=== PATIENT | female | born 1945 | race Caucasian/White ===

== ENCOUNTER 2018-06-11 12:30 | Inpatient (IN) ==
[2018-06-11] MEDS ORDERED: HYDROmorphone PF Inj 2 MG/ML Vial IV.PUSH ONE (12:52)
--- NOTE | 2018-06-11 13:54 | XR ---
EXAM DATE: 06/11/2018 1:42 PM EDT AGE/SEX: 73 years / Female INDICATIONS: Fell at home today. CLINICAL DATA: This is the patient's initial encounter. Patient reports that signs and symptoms have been present for 1 day and indicates a pain score of 0/10. MEDICAL/SURGICAL HISTORY: Cardiovascular disease. Hypertension. COPD,diabetes Hysterectomy. Appendectomy. total knee surgery. COMPARISON: No prior exams available for comparison. FINDINGS: A single AP view of the chest demonstrates the lungs to be symmetrically aerated without evidence of mass, infiltrate or effusion. The cardiomediastinal contours are unremarkable. Osseous structures a re intact. CONCLUSION: Negative examination. Electronically signed by: Lizandro Cavanaugh MD 06/11/2018 1:53 PM EDT
--- NOTE | 2018-06-11 13:55 | CT ---
EXAM DATE: 06/11/2018 1:49 PM EDT AGE/SEX: 73 years / Female INDICATIONS: Fall. Head and neck pain. CLINICAL DATA: This is the patient's initial encounter. Patient reports that signs and symptoms have been present for 1 day and indicates a pain score of 4/10. MEDICAL/SURGICAL HISTORY: Hypertension. Diabetes. Hysterectomy. RADIATION DOSE: 36.39 CTDI (mGy) COMPARISON: [facility] [place], CT BRAIN W/O CONTRAST, 10/06/2015. . TECHNIQUE: CT of the head without contrast. Using automated exposure control and adjustment of the mA and/or kV according to patient size, radiation dose was kept as low as reasonably achievable to ob tain optimal diagnostic quality images. DICOM format image data is available electronically for revi ew and comparison. FINDINGS: Cerebrum: The ventricles are normal for age. No evidence of midline shift, mass lesion, hemorrhage or acute infarction. No extraaxial fluid collections are seen. Posterior Fossa: The cerebellum and brainstem are intact. The 4th ventricle is midline. The cerebe llopontine angle is unremarkable. Extracranial: The visualized portion of the orbits is intact. Skull: The calvaria is intact. No evidence of skull fracture. CONCLUSION: 1. Negative CT Head non contrast. Mild atrophy . Electronically signed by: Lizandro Cavanaugh MD 06/11/2018 1:54 PM EDT
--- NOTE | 2018-06-11 13:57 | XR ---
EXAM DATE: 06/11/2018 1:45 PM EDT AGE/SEX: 73 years / Female INDICATIONS: Fell today. CLINICAL DATA: This is the patient's initial encounter. Patient reports that signs and symptoms have been present for 1 day and indicates a pain score of 10/10. MEDICAL/SURGICAL HISTORY: Cardiovascular disease. Hypertension. COPD,DIABETES Hysterectomy. Appendectomy. total knee surgery COMPARISON: No prior exams available for comparison. FINDINGS: Examination of the pelvis demonstrates no evidence of fracture or dislocation. Bony mineralization i s normal. There is no widening of the sacroiliac joints. No foreign body is identified. Previous bl adder suspension surgery CONCLUSION: Negative examination. Electronically signed by: Lizandro Cavanaugh MD 06/11/2018 1:56 PM EDT
--- NOTE | 2018-06-11 13:57 | XR ---
EXAM DATE: 06/11/2018 1:49 PM EDT AGE/SEX: 73 years / Female INDICATIONS: Fell today. CLINICAL DATA: This is the patient's initial encounter. Patient reports that signs and symptoms have been present for 1 day and indicates a pain score of 10/10. MEDICAL/SURGICAL HISTORY: Cardiovascular disease. Hypertension. diabetes, copd Appendectomy. Hysterectomy. total knee COMPARISON: No prior exams available for comparison. FINDINGS: There is a displaced oblique fracture involving the right humeral shaft. The shaft is partially displ aced by 150% of its original shaft width. The humeral head is normal in position. CONCLUSION: Oblique displaced humeral shaft fracture as described above. Electronically signed by: Lizandro Cavanaugh MD 06/11/2018 1:55 PM EDT
--- NOTE | 2018-06-11 13:58 | XR ---
EXAM DATE: 06/11/2018 1:53 PM EDT AGE/SEX: 73 years / Female INDICATIONS: Fell today. CLINICAL DATA: This is the patient's initial encounter. Patient reports that signs and symptoms have been present for 1 day and indicates a pain score of 10/10. MEDICAL/SURGICAL HISTORY: Cardiovascular disease. Hypertension. Chronic obstructive pulmonary disease. diabetes Hysterectomy. Appendectomy. total knee COMPARISON: [facility] [place], SHOULDER LIMITED RIGHT 2V, 06/11/2018. . FINDINGS: There is an oblique spiral fracture of the midshaft of the right humerus with rotation and lateral di splacement of the distal fragment. CONCLUSION: Significantly displaced humeral fracture as above Electronically signed by: Lizandro Cavanaugh MD 06/11/2018 1:56 PM EDT
--- NOTE | 2018-06-11 14:05 | CT ---
EXAM DATE: 06/11/2018 1:59 PM EDT AGE/SEX: 73 years / Female INDICATIONS: Fall. Head, neck, and face pain. CLINICAL DATA: This is the patient's initial encounter. Patient reports that signs and symptoms have been present for 1 day and indicates a pain score of 4/10. MEDICAL/SURGICAL HISTORY: Hypertension. Diabetes. Hysterectomy. RADIATION DOSE: 28.39 CTDI (mGy) COMPARISON: No prior exams available for comparison. TECHNIQUE: Contiguous images in the axial and coronal planes were obtained using helical multirow de tector technique. Using automated exposure control and adjustment of the mA and/or kV according to p atient size, radiation dose was kept as low as reasonably achievable to obtain optimal diagnostic felipe lity images. DICOM format image data is available electronically for review and comparison. FINDINGS: Orbits: The orbital and infraorbital osseous structures are intact. The retroconal structures have a normal configuration. No radiopaque foreign bodies are seen. Nasal Bone: The nasal bone and maxillary spine are intact. Zygomatic Arches: Symmetric without evidence of fracture. Sinuses: The maxillary, ethmoid, and frontal sinuses are intact. No air-fluid levels seen. Nasal Cavity: The nasal septum is intact and midline. The lacrimal ducts are intact. Soft Tissues: Subcutaneous hematoma in the left frontal region anteriorly without underlying bony in jury or intracranial hemorrhage. Intracranial: No intracranial air seen. Cribriform Plate: Grossly intact. CONCLUSION: 1. Left frontal subcutaneous hematoma. No evidence of underlying facial fracture or significant sinu s disease Electronically signed by: Lizandro Cavanaugh MD 06/11/2018 2:03 PM EDT
--- NOTE | 2018-06-11 14:09 | CT ---
EXAM DATE: 06/11/2018 2:02 PM EDT AGE/SEX: 73 years / Female INDICATIONS: Trauma, fall. CLINICAL DATA: This is the patient's initial encounter. Patient reports that signs and symptoms have been present for 1 day and indicates a pain score of 6/10. MEDICAL/SURGICAL HISTORY: Hypertension. Diabetes. Hysterectomy. RADIATION DOSE: 18.26 CTDI (mGy) COMPARISON: [facility], CT CHEST W/O CONTRAST, 10/03/2014. . TECHNIQUE: Multiple contiguous axial images were obtained through the chest without contrast. Image s were obtained in suspended respiration using multiple row detector helical technique. Using automa demetris exposure control and adjustment of the mA and/or kV according to patient size, radiation dose was kept as low as reasonably achievable to obtain optimal diagnostic quality images. DICOM format imag e data is available electronically for review and comparison. FINDINGS: Lungs: The lungs are symmetrically aerated. No infiltrates or nodular densities are seen. Mediastinum: There is good visualization of the great vessels of the middle mediastinum. No evidenc e of mediastinal or hilar adenopathy/mass. Pleurae: No evidence of focal thickening or pleural effusion. Axillae: Unremarkable. Bony Structures: Unremarkable. Miscellaneous: The examination was extended to include the upper abdomen, and both adrenal glands ar e normal in size and configuration. CONCLUSION: 1. Negative CT Chest non contrast. Electronically signed by: Lizandro Cavanaugh MD 06/11/2018 2:08 PM EDT
--- NOTE | 2018-06-11 14:15 | CT ---
EXAM DATE: 06/11/2018 2:01 PM EDT AGE/SEX: 73 years / Female INDICATIONS: Fall. Head and neck pain. CLINICAL DATA: This is the patient's initial encounter. Patient reports that signs and symptoms have been present for 1 day and indicates a pain score of 4/10. MEDICAL/SURGICAL HISTORY: Hypertension. Diabetes. Hysterectomy. RADIATION DOSE: 29.16 CTDI (mGy) COMPARISON: [facility], MR CERVICAL SPINE W/O CONTRAST, 04/10/2016. [facility], MR LUMBAR SPINE W/O CONTRAST, 01/25/2016. . TECHNIQUE: Contiguous axial images were obtained using helical multirow detector technique. The vol umetric data was post-processed with multiplanar reconstruction in oblique axial, sagittal, and coron al planes. Using automated exposure control and adjustment of the mA and/or kV according to patient s ize, radiation dose was kept as low as reasonably achievable to obtain optimal diagnostic quality francesco ges. DICOM format image data is available electronically for review and comparison. FINDINGS: There is no acute fracture or prevertebral soft tissue swelling. There is grade I anterolisthesis of C7 in relation to T1. Anterior cervical fusion hardware is noted at C4 and C5. There is straightening of the normal cervica l lordosis. Moderate spinal stenosis and bilateral foraminal narrowing is noted at C5-6. Mild spinal stenosis and moderate left neuroforaminal narrowing is noted at C4-5. Severe left neuroforaminal narr owing and moderate right neuroforaminal narrowing without spinal stenosis are noted at C3-4. Moderate left neuroforaminal narrowing is noted at C2-3 and C6-7. CONCLUSION: 1. No acute fracture or prevertebral soft tissue swelling. 2. Moderate spinal stenosis and bilateral foraminal narrowing at C5-6. 3. Mild spinal stenosis and moderate left neuroforaminal narrowing at C4-C5. 4. Severe left neuroforaminal narrowing and moderate right neuroforaminal narrowing without spinal s tenosis at C3-4. 5. Grade I anterolisthesis of C7 in relation to T1. 6. Moderate left neuroforaminal narrowing at C2-3 and C6-7. 7. Straightening of the normal cervical lordosis. Electronically signed by: Donal España MD 06/11/2018 2:13 PM EDT
[2018-06-11 14:33] LABS: Baso % (Auto) 0.2 % (0.0-2.0); Eos # (Auto) 0.1 th/mm3 (0.0-0.4); Eos % (Auto) 0.8 % (0.0-4.0); Hematocrit 40.4 % (35.0-46.0); Hemoglobin 13.8 gm/dL (11.6-15.3); Lymph # (Auto) 1.3 th/mm3 (1.0-4.8); Lymph % (Auto) 9.7 % (9.0-44.0); Mean Corpuscular HGB Conc 34.2 % (32.0-36.0); Mean Corpuscular Hemoglobin 31.2 pg (27.0-34.0); Mean Corpuscular Volume 91.3 fL (80.0-100.0); Mean Platelet Volume 9.8 fL (7.0-11.0); Mono # (Auto) 0.6 th/mm3 (0.0-0.9); Mono % (Auto) 4.2 % (0.0-8.0); Neut # (Auto) 11.7 th/mm3 (1.8-7.7); Neut % (Auto) 85.1 % (16.0-70.0); Platelet Count 160 th/mm3 (150-450); Red Blood Count 4.43 mil/mm3 (4.00-5.30); Red Cell Distribution Width 13.4 % (11.6-17.2); White Blood Count 13.8 th/mm3 (4.0-11.0)
[2018-06-11 14:46] LABS: Activated Partial Thrombo Time 22.8 sec (24.3-30.1); Prothrombin Time 10.2 sec (9.8-11.6)
[2018-06-11 14:50] LABS: Calcium 8.5 mg/dL (8.5-10.1); Carbon Dioxide 30.4 meq/L (21.0-32.0); Potassium 3.8 meq/L (3.5-5.1)
--- NOTE | 2018-06-11 15:23 | XR ---
EXAM DATE: 06/11/2018 3:18 PM EDT AGE/SEX: 73 years / Female INDICATIONS: Fell today at home CLINICAL DATA: This is the patient's initial encounter. Patient reports that signs and symptoms have been present for 1 day and indicates a pain score of 6/10. MEDICAL/SURGICAL HISTORY: Cardiovascular disease. Hypertension. COPD, Diabetes Appendectomy. Hysterectomy. COMPARISON: No prior exams available for comparison. FINDINGS: Moderate osteoarthritis is noted involving the interphalangeal joints of the right hand as well as th e first carpometacarpal joint. Bone mineralization is well maintained. There is no acute fracture or dislocation. No significant soft tissue swelling is noted. CONCLUSION: 1. Moderate osteoarthritis involving the interphalangeal joints of the right hand as well as the fir st carpometacarpal joint. 2. No acute fracture, dislocation or soft tissue swelling. Electronically signed by: Donal España MD 06/11/2018 3:21 PM EDT
[2018-06-11] MEDS ORDERED: Acetaminophen 325 MG Tablet PO PRN (15:40)
[2018-06-11] MEDS ORDERED: Bisacodyl 10 MG Supp RECTAL PRN (15:40)
[2018-06-11] MEDS ORDERED: Morphine Inj 4 MG/ML Vial IV.PUSH PRN (15:43)
[2018-06-11] MEDS ORDERED: Dextrose 50% in Water 50 ML Vial IV.PUSH PRN (15:46)
--- NOTE | 2018-06-11 15:58 | ED ---
HPI General Chief complaint: Fall Stated complaint: Fall Time Seen by Provider: 06/11/18 12:43 History of Present Illness HPI narrative: Patient is a 73-year-old female presents emergency department for evaluation of right arm pain and right upper back pain after a fall. Patient arrives by EMS states just prior to calling EMS this morning she had a trip and fall in her kitchen landing mostly on her face as well as her outstretched right hand. Denies any chest pain shortness of breath abdominal pain nausea vomiting diarrhea headache. Denies any history of blood thinner use. States the pain is severe, right arm, radiates to her fingertips, associated signs symptoms in context as above per Related Data Home Medications Medication Instructions Recorded Confirmed glimepiride 4 mg PO QAM 06/11/18 06/11/18 metoprolol tartrate 100 mg PO BID 06/11/18 06/11/18 Allergies Allergy/AdvReac Type Severity Reaction Status Date / Time vancomycin Allergy Severe Rash Verified 06/11/18 12:41 Review of Systems ROS: all other systems reviewed are negative [facility] Medical History Medical History Arthritis (Acute) Diabetes (Acute) HBP (high blood pressure) (Acute) Hx of hysterectomy (Acute) Surgical History Surgical History Hx of neck surgery (Acute) Social History Social History Substance History: No History of Abuse Second Hand Smoke Exposure: No Smoking Status: Never smoker How Often Do You Have a Drink Containing Alcohol: Never Recent Travel in [facility] within the Last 8 Weeks: No Recent Out of Country Travel within the Last 8 Weeks: No Immunization History Tetanus Immunization: >5 Years Hx Influenza Vaccine This Season: No Exam Narrative Exam Narrative: GENERAL: Well-developed well-nourished, overweight, exam somewhat limited by patient cooperation of the right upper extremity. SKIN: Focused skin assessment warm/dry. HEAD: No hanley signs, there is a frontal hematoma just left of midline, skin overlying is intact. There is some periorbital ecchymosis is normocephalic. EYES: Pupils equal and round. No scleral icterus. No injection or drainage. ENT: No nasal bleeding or discharge. Mucous membranes pink and moist. No septal hematoma NECK: Trachea midline. No JVD. CARDIOVASCULAR: Regular rate and rhythm. No murmur appreciated. RESPIRATORY: No accessory muscle use. Clear to auscultation. Breath sounds equal bilaterally. GASTROINTESTINAL: Abdomen soft, non-tender, nondistended. Hepatic and splenic margins not palpable. MUSCULOSKELETAL: No obvious deformities. No clubbing. No cyanosis. No edema. Pulses motor and sensory intact distally in all 4 extremities, compartments are soft, there is some tenderness about the middle of the humerus, exam otherwise limited by the patient's habitus, there is some minimal tenderness over the distal radius on the right side. No midline CT or L-spine tenderness. There is some tenderness over the right scapula. Pelvis is stable. NEUROLOGICAL: Awake and alert. No obvious cranial nerve deficits. Motor grossly within normal limits. Normal speech. PSYCHIATRIC: Appropriate mood and affect; insight and judgment normal. Course Initial Documented Vital Signs Temperature 98.1 F 06/11/18 12:35 Pulse Rate 52 L 06/11/18 12:35 Respiratory Rate 18 06/11/18 12:35 Blood Pressure 172/79 H 06/11/18 12:35 Pulse Oximetry 99 06/11/18 12:35 Last Documented Vital Signs Temperature 97.9 F 06/11/18 14:00 Pulse Rate 68 06/11/18 14:00 Respiratory Rate 18 06/11/18 14:20 Blood Pressure 152/83 H 06/11/18 14:00 Pulse Oximetry 97 06/11/18 14:00 Medical Decision Making MDM Narrative Medical decision making narrative: Patient room to the emergency department, x- rays obtained including a CT of her chest to assess the chest wall as well as the scapula, shows no acute fractures, distal radius negative, patient does have a midhumerus spiral/oblique fracture, she was placed in a coaptation splint , discussed with Dr. Cooper, n.p.o. after midnight for surgery in the morning. Patient does not appear to have any other injuries. Discussed with Dr. Matthews for admission to Medical Screen Exam Complete: Yes Emergency Medical Condition: Yes Differential Diagnosis Differential Diagnosis: Humerus fracture, neck fracture, head injury, scapular fracture, internal injury unlikely peer Lab Data Result diagrams: 06/11/18 13:00 06/11/18 13:00 Lab Results 06/11/18 06/11/18 06/11/18 Range/Units 13:00 13:00 13:00 WBC 13.8 H (4.0-11.0) th/mm3 RBC 4.43 (4.00-5.30) mil/mm3 Hgb 13.8 (11.6-15.3) gm/dL Hct 40.4 (35.0-46.0) % MCV 91.3 (80.0-100.0) fL MCH 31.2 (27.0-34.0) pg MCHC 34.2 (32.0-36.0) % RDW 13.4 (11.6-17.2) % Plt Count 160 (150-450) th/mm3 MPV 9.8 (7.0-11.0) fL Neut % (Auto) 85.1 H (16.0-70.0) % Lymph % (Auto) 9.7 (9.0-44.0) % [place] % (Auto) 4.2 (0.0-8.0) % Eos % (Auto) 0.8 (0.0-4.0) % Baso % (Auto) 0.2 (0.0-2.0) % Neut # (Auto) 11.7 H (1.8-7.7) th/mm3 Lymph # (Auto) 1.3 (1.0-4.8) th/mm3 [place] # (Auto) 0.6 (0.0-0.9) th/mm3 Eos # (Auto) 0.1 (0.0-0.4) th/mm3 Baso # (Auto) 0.0 (0.0-0.2) th/mm3 WBC Differential . Differential Comment Auto diff final PT 10.2 (9.8-11.6) sec INR 1.0 Ratio APTT 22.8 L (24.3-30.1) sec Sodium 141 (136-145) meq/L Potassium 3.8 (3.5-5.1) meq/L Chloride 103 (98-107) meq/L Carbon Dioxide 30.4 (21.0-32.0) meq/L Anion Gap 8 (5-15) meq/L BUN 18 (7-18) mg/dL Creatinine 0.84 (0.50-1.00) mg/dL Estimated GFR 67 L (>89) mL/min Random Glucose 273 H (74-106) mg/dL Calcium 8.5 (8.5-10.1) mg/dL Blood Type Blood Type Recheck Antibody Screen 06/11/18 Range/Units 13:00 WBC (4.0-11.0) th/mm3 RBC (4.00-5.30) mil/mm3 Hgb (11.6-15.3) gm/dL Hct (35.0-46.0) % MCV (80.0-100.0) fL MCH (27.0-34.0) pg MCHC (32.0-36.0) % RDW (11.6-17.2) % Plt Count (150-450) th/mm3 MPV (7.0-11.0) fL Neut % (Auto) (16.0-70.0) % Lymph % (Auto) (9.0-44.0) % [place] % (Auto) (0.0-8.0) % Eos % (Auto) (0.0-4.0) % Baso % (Auto) (0.0-2.0) % Neut # (Auto) (1.8-7.7) th/mm3 Lymph # (Auto) (1.0-4.8) th/mm3 [place] # (Auto) (0.0-0.9) th/mm3 Eos # (Auto) (0.0-0.4) th/mm3 Baso # (Auto) (0.0-0.2) th/mm3 WBC Differential Differential Comment PT (9.8-11.6) sec INR Ratio APTT (24.3-30.1) sec Sodium (136-145) meq/L Potassium (3.5-5.1) meq/L Chloride (98-107) meq/L Carbon Dioxide (21.0-32.0) meq/L Anion Gap (5-15) meq/L BUN (7-18) mg/dL Creatinine (0.50-1.00) mg/dL Estimated GFR (>89) mL/min Random Glucose (74-106) mg/dL Calcium (8.5-10.1) mg/dL Blood Type A Positive Blood Type Recheck Required Antibody Screen Negative Imaging Data Radiologist's impression: Cervical Spine CT 06/11/18 12:51 CONCLUSION: 1. No acute fracture or prevertebral soft tissue swelling. 2. Moderate spinal stenosis and bilateral foraminal narrowing at C5-6. 3. Mild spinal stenosis and moderate left neuroforaminal narrowing at C4-C5. 4. Severe left neuroforaminal narrowing and moderate right neuroforaminal narrowing without spinal stenosis at C3-4. 5. Grade I anterolisthesis of C7 in relation to T1. 6. Moderate left neuroforaminal narrowing at C2-3 and C6-7. 7. Straightening of the normal cervical lordosis. Chest X-Ray 06/11/18 12:51 CONCLUSION: Negative examination. Face CT 06/11/18 12:51 CONCLUSION: 1. Left frontal subcutaneous hematoma. No evidence of underlying facial fracture or significant sinus disease Head CT 06/11/18 12:51 CONCLUSION: 1. Negative CT Head non contrast. Mild atrophy . Pelvis X-Ray 06/11/18 12:51 CONCLUSION: Negative examination. Chest CT 06/11/18 12:53 CONCLUSION: 1. Negative CT Chest non contrast. Shoulder X-Ray 06/11/18 12:53 CONCLUSION: Oblique displaced humeral shaft fracture as described above. Humerus X-Ray 06/11/18 13:08 CONCLUSION: Significantly displaced humeral fracture as above Wrist X-Ray 06/11/18 14:47 CONCLUSION: 1. 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 2. No acute fracture, dislocation or soft tissue swelling. Discharge Plan Discharge Disposition Patient Disposition: 30 Still Patient Discharge Details Diagnosis: Fracture, humerus, Hematoma of frontal scalp Physicians Team ED Provider: Donal Licona Primary Care Provider: MARIA VICTORIA RAPHAEL Attending Provider: Gerardo Matthews Other Providers: Jesse Cooper Status ED Status: Admitted Patient
[2018-06-11] MEDS: HYDROmorphone PF Inj 2 MG/ML Vial IV.PUSH PRN ×2 (18:40→23:46)
--- NOTE | 2018-06-11 19:08 | P.HP ---
History of Present Illness Service: [facility] Primary Care Physician: [facility] Chief Complaint: fall and right arm pain History of Present Illness: This is a pleasant 73-year-old white female with significant past medical history of fibromyalgia, osteoarthritis, frequent falls, type 2 diabetes, sleep apnea, urinary incontinence, prior right knee replacement, s/p C4/C5 interbody fusion with cervical plate placement and removal of the C5-C7 cervical plate 2016, myelopathy. Patient indicates that she was walking in her kitchen when she missed a step and tripped and fell face forward hitting her right knee and right arm and shoulder. Patient denies any loss of consciousness, no neck pain. She laid on the floor and her significant other came to assist her and called EMS. Patient was evaluated in the emergency room, x-rays were obtained including a CT of the chest and CT of the head were negative. X-ray of the humerus shows a spiral oblique fracture. She was placed in a splint, orthopedic surgeon Dr. Cooper was called and recommended n.p.o. after midnight for surgery in the morning. Patient was given Dilaudid in the emergency room and she is comfortable at this time. Denies any numbness or tingling on the right hand. Laboratory workup completed essentially unremarkable except for mild leukocytosis. Patient indicates she has history of frequent falls, despite having surgery back in 2016. She sees pain management and is on hydrocodone at home. Uses a walker occasionally for ambulation. Patient indicates that prior to fall she had been doing well, no chest pain, has some shortness of breath with activity but she is very sedentary. Denies any fever, no chills. No changes in bowel movement, she has urinary incontinence. Indicates that approximately a month ago Dr. Stoll did baseline echo and stress test and all were normal. Denies hx of CAD. Patient is admitted for further evaluation and treatment. - Diagnosis (1) Fall (2) Fracture, humerus (3) Hematoma of frontal scalp (4) Diabetes 1.5, managed as type 2 (5) Chronic back pain (6) Fibromyalgia (7) STARR (obstructive sleep apnea) (8) Hypertension Inpatient Certification: I certify that the inpatient services were ordered in accordance with Medicare regulations governing the order. This includes certification that hospital inpatient services are reasonable and necessary and in the case of services not specified as inpatient-only under 42 CFR 419.22(n), that they are appropriately provided as inpatient services in accordance to with the 2-midnight benchmark under 43 CFR 412.3(e) Estimated Total Length of Stay (Days): 3 Plans for Post Hospital Care: Not yet determined Review of Systems All other systems reviewed negative except as stated [facility] - History History Provided By: Patient - Medical History Medical History: Medical History (Last Reviewed 06/11/18 @ 18:50 by ELLIS Mahan) Arthritis Chronic pain Diabetes Fibromyalgia Frequent falls HBP (high blood pressure) History of MRSA infection Hx of hysterectomy Obesity Osteoarthritis Sleep apnea Urinary incontinence - Surgical History Surgical History: Surgical History (Last Reviewed 06/11/18 @ 18:50 by ELLIS Mahan) History of appendectomy History of right knee surgery Hx of neck surgery Status post right foot surgery - Family History Family History: Family History (Last Updated 06/11/18 @ 18:51 by ELLIS Mahan) Father Coronary artery disease Stroke Mother Coronary artery disease Diabetes - Social History I have reviewed the patient's Social History: Yes - Tobacco History Second Hand Smoke Exposure: No Smoking Status: Never smoker - Alcohol History How Often Do You Have a Drink Containing Alcohol: Never - Substance Use History Substance History: No History of Abuse - Travel History Recent Travel in the [place] Within the Last 8 Weeks: No Recent Travel Out of the Country Within the Last 8 Weeks: No - Immunization History Tetanus Immunization: >5 Years Hx Influenza Vaccine This Season: No Medications and Allergies Active Medications: Active Medications Acetaminophen (Tylenol) 650 mg PO Q4H PRN PRN Reason: Temp > 100.4 Al Hydroxide/Mg Hydroxide (Milk Of Magnesia Liq) 30 ml PO Q12H PRN PRN Reason: Mild Constipation Bisacodyl (Dulcolax Supp) 10 mg RECTAL DAILY PRN PRN Reason: SEVERE CONSITIPATION Dextrose (D50w Vial) 50 ml IV.PUSH UNSCH PRN PRN Reason: PER HYPOGLYCEMIA PROTOCOL Glucagon (Glucagon Inj) 1 mg OTHER PRN PRN PRN Reason: for Hypoglycemia Protocol Hydromorphone HCl (Dilaudid Pf Inj) 0.5 mg IV.PUSH Q4H PRN PRN Reason: PAIN SCALE 7 TO 10 SEVERE Sodium Chloride (Ns Inj) 1,000 mls @ 100 mls/hr IV.CONT .Q10H KIANNA Insulin Aspart (Novolog Insulin Correctional Sugar Inj) 0 unit SQ ACHS KIANNA; Protocol Lactulose (Lactulose Liq) 30 ml PO DAILY PRN PRN Reason: SEVERE CONSITIPATION Metoprolol Tartrate (Lopressor) 100 mg PO BID KIANNA Ondansetron HCl (Zofran Inj) 4 mg IV.PUSH Q6H PRN PRN Reason: NAUSEA OR VOMITING Oxycodone/Acetaminophen (Percocet 5/325 Mg) 1 tab PO Q4H PRN PRN Reason: PAIN SCALE 4 TO 6 MODERATE Sennosides (Senokot) 17.2 mg PO Q12H PRN PRN Reason: Moderate Constipation Sodium Chloride (Ns Flush) 2 ml IV.FLUSH PRN PRN PRN Reason: FLUSH AFTER USING IV ACCESS Last Admin: 06/11/18 13:50 Dose: 2 ml Allergies Allergy/AdvReac Type Severity Reaction Status Date / Time vancomycin Allergy Severe Rash Verified 06/11/18 12:41 Home Medications Medication Instructions Recorded Confirmed Type glimepiride 4 mg PO QAM 06/11/18 06/11/18 History metoprolol tartrate 100 mg PO BID 06/11/18 06/11/18 History Exam Vital signs: Vital Signs 06/11/18 12:35 06/11/18 12:51 06/11/18 14:00 Temperature 98.1 F 97.9 F Pulse Rate 52 L 52 L 68 Respiratory Rate 18 18 Blood Pressure 172/79 H 152/83 H Pulse Oximetry 99 99 97 06/11/18 14:20 06/11/18 16:00 Temperature 97.5 F L Pulse Rate 60 Respiratory Rate 18 18 Blood Pressure 163/74 H Pulse Oximetry 92 L Intake & Output 06/10/18 06/11/18 06/11/18 18:59 06:59 18:59 Weight 113.398 kg Narrative: GENERAL: 73-year-old obese female, no apparent distress. SKIN: Midforehead hematoma noted, left periorbital bruising, mild bruising noted over right eyelid. Abrasion over right knee. Bruising noted top lip. HEAD: Atraumatic. Normocephalic. EYES: Pupils equal and round. No scleral icterus. No injection or drainage. ENT: No nasal bleeding or discharge. Mucous membranes pink and moist. NECK: Trachea midline. No JVD. CARDIOVASCULAR: Regular rate and rhythm. RESPIRATORY: No accessory muscle use. Clear to auscultation. Breath sounds equal bilaterally. GASTROINTESTINAL: Abdomen soft, non-tender, nondistended. Hepatic and splenic margins not palpable. MUSCULOSKELETAL: Right upper extremity in splint, intact sensation to right fingertips, right radial pulse 2+. Right forearm tender to palpation. Capillary refill less than 3 seconds. No other joint abnormality. NEUROLOGICAL: Awake and alert and oriented 3. No obvious cranial nerve deficits. Normal speech. PSYCHIATRIC: Appropriate mood and affect; insight and judgment normal. Results - Labs CBC & Chem 7: 06/11/18 13:00 06/11/18 13:00 Labs: Laboratory Results - last 24 hr 06/11/18 06/11/18 06/11/18 13:00 13:00 13:00 WBC 13.8 H RBC 4.43 Hgb 13.8 Hct 40.4 MCV 91.3 MCH 31.2 MCHC 34.2 RDW 13.4 Plt Count 160 MPV 9.8 Neut % (Auto) 85.1 H Lymph % (Auto) 9.7 [place] % (Auto) 4.2 Eos % (Auto) 0.8 Baso % (Auto) 0.2 Neut # (Auto) 11.7 H Lymph # (Auto) 1.3 [place] # (Auto) 0.6 Eos # (Auto) 0.1 Baso # (Auto) 0.0 WBC Differential . Differential Comment Auto diff final PT 10.2 INR 1.0 APTT 22.8 L Sodium 141 Potassium 3.8 Chloride 103 Carbon Dioxide 30.4 Anion Gap 8 BUN 18 Creatinine 0.84 Estimated GFR 67 L Random Glucose 273 H Calcium 8.5 Blood Type Blood Type Recheck Antibody Screen 06/11/18 13:00 WBC RBC Hgb Hct MCV MCH MCHC RDW Plt Count MPV Neut % (Auto) Lymph % (Auto) [place] % (Auto) Eos % (Auto) Baso % (Auto) Neut # (Auto) Lymph # (Auto) [place] # (Auto) Eos # (Auto) Baso # (Auto) WBC Differential Differential Comment PT INR APTT Sodium Potassium Chloride Carbon Dioxide Anion Gap BUN Creatinine Estimated GFR Random Glucose Calcium Blood Type A Positive Blood Type Recheck Required Antibody Screen Negative - Imaging Impressions Cervical Spine CT 06/11/18 12:51 CONCLUSION: 1. No acute fracture or prevertebral soft tissue swelling. 2. Moderate spinal stenosis and bilateral foraminal narrowing at C5-6. 3. Mild spinal stenosis and moderate left neuroforaminal narrowing at C4-C5. 4. Severe left neuroforaminal narrowing and moderate right neuroforaminal narrowing without spinal stenosis at C3-4. 5. Grade I anterolisthesis of C7 in relation to T1. 6. Moderate left neuroforaminal narrowing at C2-3 and C6-7. 7. Straightening of the normal cervical lordosis. Chest X-Ray 06/11/18 12:51 CONCLUSION: Negative examination. Face CT 06/11/18 12:51 CONCLUSION: 1. Left frontal subcutaneous hematoma. No evidence of underlying facial fracture or significant sinus disease Head CT 06/11/18 12:51 CONCLUSION: 1. Negative CT Head non contrast. Mild atrophy . Pelvis X-Ray 06/11/18 12:51 CONCLUSION: Negative examination. Chest CT 06/11/18 12:53 CONCLUSION: 1. Negative CT Chest non contrast. Shoulder X-Ray 06/11/18 12:53 CONCLUSION: Oblique displaced humeral shaft fracture as described above. Humerus X-Ray 06/11/18 13:08 CONCLUSION: Significantly displaced humeral fracture as above Wrist X-Ray 06/11/18 14:47 CONCLUSION: 1. 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 2. No acute fracture, dislocation or soft tissue swelling. Caprini VTE Risk Assessment Caprini VTE Risk Assessment: Moderate/High Risk (score >= 2) Caprini Risk Assessment Model: Point Value = 1 Point Value = 2 Point Value = 3 Point Value = 5 Age 41-60 Minor surgery BMI > 25 kg/m2 Swollen legs Varicose veins or History of unexplained or recurrent spontaneous Oral contraceptives or hormone replacement Sepsis (< 1 month) Serious lung disease, including pneumonia (< 1 month) Abnormal pulmonary function Acute myocardial infarction Congestive heart failure (< 1 month) History of inflammatory bowel disease Medical patient at bed rest Age 61-74 Arthroscopic surgery Major open surgery (> 45 min) Laparoscopic surgery (> 45 min) Malignancy Confined to bed (> 72 hours) Immobilizing plaster cast Central venous access Age >= 75 History of VTE Family history of VTE Factor V Leiden Prothrombin [id number] Lupus anticoagulant Anticardiolipin antibodies Elevated serum homocysteine Heparin-induced thrombocytopenia Other congenital or acquired thrombophilia Stroke (< 1 month) Elective arthroplasty Hip, pelvis, or leg fracture Acute spinal cord injury (< 1 month) Prophylaxis Regimen: Total Risk Factor Score Risk Level Prophylaxis Regimen 0-1 Low Early ambulation 2 Moderate Order ONE of the following: *Sequential Compression Device (SCD) *Heparin 5000 units SQ BID 3-4 Higher Order ONE of the following medications: *Heparin 5000 units SQ TID *Enoxaparin/Lovenox 40 mg SQ daily (WT < 150 kg, CrCl > 30 mL/min) *Enoxaparin/Lovenox 30 mg SQ daily (WT < 150 kg, CrCl > 10-29 mL/min) *Enoxaparin/Lovenox 30 mg SQ BID (WT < 150 kg, CrCl > 30 mL/min) AND/OR *Sequential Compression Device (SCD) 5 or more Highest Order ONE of the following medications: *Heparin 5000 units SQ TID (Preferred with Epidurals) *Enoxaparin/Lovenox 40 mg SQ daily (WT < 150 kg, CrCl > 30 mL/min) *Enoxaparin/Lovenox 30 mg SQ daily (WT < 150 kg, CrCl > 10-29 mL/min) *Enoxaparin/Lovenox 30 mg SQ BID (WT < 150 kg, CrCl > 30 mL/min) AND *Sequential Compression Device (SCD) Assessment and Plan - Assessment (1) Fall Code(s): W19.XXXA - Unspecified fall, initial encounter Status: Acute (2) Fracture, humerus Code(s): S42.309A - Unspecified fracture of shaft of humerus, unspecified arm, initial encounter for closed fracture Status: Acute (3) Hematoma of frontal scalp Code(s): S00.03XA - Contusion of scalp, initial encounter Status: Acute (4) Diabetes 1.5, managed as type 2 Code(s): E10.9 - Type 1 diabetes mellitus without complications Status: Chronic (5) Chronic back pain Code(s): M54.9 - Dorsalgia, unspecified; G89.29 - Other chronic pain Status: Chronic (6) Fibromyalgia Code(s): M79.7 - Fibromyalgia Status: Chronic (7) STARR (obstructive sleep apnea) Code(s): G47.33 - Obstructive sleep apnea (adult) (pediatric) Status: Chronic (8) Hypertension Code(s): I10 - Essential (primary) hypertension Status: Chronic - Plan Assessment/Plan 73-year-old female with history of chronic pain, fibromyalgia, prior anterior cervical fusion, frequent falls, hypertension. Patient tripped and fell face forward hitting her forehead, right arm and shoulder. No LOC. Imaging studies were completed, CT of the head and chest negative. She was found with rith midhumerus spiral/oblique fracture. She was placed in a splint and case was discussed with orthopedic surgeon. Status post mechanical fall, right mid humeral spiral oblique fracture. -Orthopedic surgery has been consulted, plan is for surgery in the morning. Keep n.p.o. after midnight Dilaudid as well as [place] as needed have been ordered for pain management Type 2 diabetes Accu-Cheks before meals and at bedtime with insulin therapy as needed -Hold oral hypoglycemic for now, as patient will be n.p.o. after midnight Diabetic diet History of frequent falls, prior history of cervical neck surgery. -Physical therapy for consultation Chronic pain, history of fibromyalgia and back pain. -Continue with pain management Obstructive sleep apnea, uses CPAP at home Patient will have significant other to bring home CPAP for use. Hypertension, well controlled Continue metoprolol. Consult case management for discharge planning, home health care and PT. SCDs for DVT prophylaxis Home medications reviewed, initiated as indicated Plan of care discussed with patient, RN. Further management of the patient will be dependent on hospital course (1) Fall Qualifiers: Encounter type: initial encounter Qualified Code(s): W19.XXXA - Unspecified fall, initial encounter (2) Fracture, humerus Qualifiers: Encounter type: initial encounter Fracture type: closed Fracture morphology : spiral Fracture alignment: displaced Laterality: right (3) Hematoma of frontal scalp Qualifiers: Encounter type: initial encounter Qualified Code(s): S00.03XA - Contusion of scalp, initial encounter (5) Chronic back pain Qualifiers: Back pain location: low back pain Back pain laterality: unspecified Sciatica presence: without sciatica Qualified Code(s): M54.5 - Low back pain; G89.29 - Other chronic pain (8) Hypertension Qualifiers: Hypertension type: essential hypertension Qualified Code(s): I10 - Essential (primary) hypertension
[2018-06-11] MEDS: Sod Chloride 0.9% Inj 1,000 ML IV.CONT SCH ×2 (19:41→21:14)
[2018-06-11] MEDS: Insulin NovoLOG Aspart Correctional Sugar Inj SQ SCH ×2 (19:46→21:13)
[2018-06-11] MEDS: Metoprolol Tartrate 100 MG Tablet PO SCH (20:45)
[2018-06-12] MEDS: Sod Chloride 0.9% Inj 1,000 ML IV.CONT SCH ×2 (01:51→11:39)
[2018-06-12] MEDS ORDERED: Chlorhexidine Gluconate 2% 1 Pack (2 Cloths) TOPICAL ONE (04:30)
[2018-06-12] MEDS ORDERED: Sodium Chlor 0.9% Inj 500 ML IV.CONT ONE (04:30)
[2018-06-12] MEDS: HYDROmorphone PF Inj 2 MG/ML Vial IV.PUSH PRN ×3 (05:35→17:27)
[2018-06-12 05:50] LABS: Bilirubin,Urine Negative (Negative); Clarity,Urine Hazy (Clear); Color,Urine Yellow (Yellw/Straw); Glucose,Urine (UA) 500 or Greater mg/dL (Negative); Leukocyte Esterase,Urine Negative (Negative); Mucus,Urine Few /lpf (Occasional); Nitrite,Urine Negative (Negative); Specific Gravity,Urine 1.024 (1.002-1.035); Squamous Epithelial Cell,Urine 2 /hpf (0-5)
[2018-06-12] MEDS: Insulin NovoLOG Aspart Correctional Sugar Inj SQ SCH ×4 (07:25→20:49)
[2018-06-12] MEDS: Metoprolol Tartrate 100 MG Tablet PO SCH ×3 (07:25→20:46)
[2018-06-12] MEDS ORDERED: Lidocaine PF 1% Inj 5 ML Syringe OTHER ONE (09:00)
[2018-06-12] MEDS ORDERED: Glycopyrrolate Inj 1 MG/5 ML Syringe IV.PUSH ONE (09:00)
[2018-06-12] MEDS ORDERED: hydrALAZINE HCl Inj 20 MG/ML Vial IV.PUSH ONE (09:00)
[2018-06-12] MEDS ORDERED: Post-op Orders (for Pharmacy) OTHER STA (10:17)
--- NOTE | 2018-06-12 10:22 | P.OP ---
- Preoperative Diagnosis (1) Closed right humeral fracture Date of procedure: 06/12/18 Procedure: Open reduction internal fixation right humerus shaft fracture Anesthesia: GETA Surgeon: David Soto MD Director Of Strategic Communications: JAZMIN Armas PA-C The surgical procedure was assisted by my physician executive marketing assistant. My P.A. presence was necessary throughout this case for the manipulation and positioning of the surgical extremity. My P.A. was assisting me throughout the duration of this procedure. The skill set of a physician executive marketing assistant was medically necessary to complete this procedure. During the surgical case the surgical scrub technician was working at the back table and the physician executive marketing assistant was directly assisting me. Operation and Findings: Implants used: Synthes Plan of activity: Nonweightbearing, passive range of motion right arm Details of procedure: Patient was seen and evaluated preoperatively. Treatment options were discussed regarding right humerus fracture including surgical and nonsurgical treatments. After detailed discussion of risk and benefits of procedure patient wishes to proceed with surgery. Risks of surgery include bleeding, infection, nonunion, malunion, painful hardware, loss of motion of shoulder and elbow, weakness and numbness of arm, as well as medical competitions including blood clots stroke and . Patient was brought to operating room and placed on the OR table. GETA was administered by anesthesiologist. Operative arm and shoulder were prepped with alcohol followed by Hibiclens and draped usual sterile fashion. Timeout procedure was performed. IV antibiotics were given prior to incision. A standard anterior approach was utilized. Subcutaneous tissues was dissected with Bovie. Cephalic vein was identified and protected. Proximally the deltopectoral interval was opened. Distally the brachialis was split. The fracture was identified. There was an area of comminution. Soft tissue was removed from the fracture site. Fracture site was cleaned with curettes. At this point the fracture was reduced using fracture tenaculums. Multiplanar fluoroscopy confirmed excellent of fracture. 3.5 cortical lag screws were used to compress the fracture. A Synthes 3.5 plate was contoured to fit the humerus. Plate was provisionally held the bone with K wires. 3.5 cortical screws were placed on each side of the fracture. The screws were placed to add compression to fracture. Multiple screws were placed in each side of the fracture. All screws were predrilled and premeasured for appropriate length. Final fluoroscopy revealed excellent alignment of fracture with well-placed hardware. Incision was thoroughly irrigated. Fascia was closed with #1 Vicryl , subcutaneous tissues closed with 3-0 Vicryl, and skin was closed with matt. Sterile dressings were applied. Needle and sponge counts were correct. Patient was placed into a sling, and then transferred to recovery room in stable condition
[2018-06-12] MEDS ORDERED: *morphine SULFATE 4 MG/ML PERIprocedure ONLY ONE ×2 (10:50→11:37)
[2018-06-12] MEDS ORDERED: *Labetalol HCl Inj 100 MG/20 ML Vial PERIprocedural Use ONLY IV.PUSH ONE (10:50)
[2018-06-12] MEDS ORDERED: fentaNYL Citrate Inj 100 MCG/2 ML Ampul ONE (10:54)
--- NOTE | 2018-06-12 10:57 | P.PNOP ---
Subjective Interval history: Transferred to PACU in stable condition Physical Exam Vital signs: Vital Signs 06/11/18 12:35 06/11/18 12:51 06/11/18 14:00 Temperature 98.1 F 97.9 F Pulse Rate 52 L 52 L 68 Respiratory Rate 18 18 Blood Pressure 172/79 H 152/83 H Pulse Oximetry 99 99 97 06/11/18 14:20 06/11/18 15:31 06/11/18 16:00 Temperature 98.1 F 97.5 F L Pulse Rate 63 60 Respiratory Rate 18 18 18 Blood Pressure 152/92 H 163/74 H Pulse Oximetry 95 92 L 06/11/18 17:00 06/11/18 20:00 06/12/18 00:00 Temperature 97.5 F L 98.3 F 98.2 F Pulse Rate 60 78 65 Respiratory Rate 18 18 18 Blood Pressure 163/74 H 153/85 H 168/85 H Pulse Oximetry 92 L 96 95 06/12/18 04:00 06/12/18 08:35 Temperature 98.1 F Pulse Rate 63 67 Respiratory Rate 18 16 Blood Pressure 152/92 H 164/100 H Pulse Oximetry 95 95 Intake & Output 06/11/18 06/12/18 06/12/18 18:59 06:59 18:59 Intake Total 360 / 360 0 / 0 1700 / 1700 Output Total 75 / 75 Balance 360 / 360 0 / 0 1625 / 1625 Weight 113.398 kg 113.98 kg Intake: Oral 360 / 360 0 / 0 Anesthesia Amount 1700 / 1700 Output: Estimated Blood Loss 75 / 75 Other: # Voids 2 2 Date of Last Bowel Movement 06/10/18 Weight On Admission 113.98 kg Narrative: Right upper extremity: Clean dry dressings intact. Intact distal pulses. Sling and swath in place. Results - Labs CBC & Chem 7: 06/11/18 13:00 06/11/18 13:00 Laboratory Results - last 24 hr 06/11/18 06/11/18 06/11/18 13:00 13:00 13:00 WBC 13.8 H RBC 4.43 Hgb 13.8 Hct 40.4 MCV 91.3 MCH 31.2 MCHC 34.2 RDW 13.4 Plt Count 160 MPV 9.8 Neut % (Auto) 85.1 H Lymph % (Auto) 9.7 [place] % (Auto) 4.2 Eos % (Auto) 0.8 Baso % (Auto) 0.2 Neut # (Auto) 11.7 H Lymph # (Auto) 1.3 [place] # (Auto) 0.6 Eos # (Auto) 0.1 Baso # (Auto) 0.0 WBC Differential . Differential Comment Auto diff final PT 10.2 INR 1.0 APTT 22.8 L Sodium 141 Potassium 3.8 Chloride 103 Carbon Dioxide 30.4 Anion Gap 8 BUN 18 Creatinine 0.84 Estimated GFR 67 L POC Glucose Random Glucose 273 H Calcium 8.5 Urine Color Urine Clarity Urine pH Ur Specific [place] Urine Protein Urine Glucose (UA) Urine Ketones Urine Occult Blood Urine Nitrate Urine Bilirubin Urine Urobilinogen Ur Leukocyte Esterase Urine RBC Urine WBC Ur Squamous Epith Cells Urine Mucus Micro UA Comment Ur Microscopic Review Urine Culture Comments Blood Type Blood Type Recheck Antibody Screen 06/11/18 06/11/18 06/12/18 13:00 20:49 05:25 WBC RBC Hgb Hct MCV MCH MCHC RDW Plt Count MPV Neut % (Auto) Lymph % (Auto) [place] % (Auto) Eos % (Auto) Baso % (Auto) Neut # (Auto) Lymph # (Auto) [place] # (Auto) Eos # (Auto) Baso # (Auto) WBC Differential Differential Comment PT INR APTT Sodium Potassium Chloride Carbon Dioxide Anion Gap BUN Creatinine Estimated GFR POC Glucose 226 H Random Glucose Calcium Urine Color Yellow Urine Clarity Hazy H Urine pH 6.0 Ur Specific [place] 1.024 Urine Protein Negative Urine Glucose (UA) 500 or greater Urine Ketones Negative Urine Occult Blood Negative Urine Nitrate Negative Urine Bilirubin Negative Urine Urobilinogen Less than 2 Ur Leukocyte Esterase Negative Urine RBC 2 Urine WBC 8 H Ur Squamous Epith Cells 2 Urine Mucus Few H Micro UA Comment Culture not ind Ur Microscopic Review Not Reportable Urine Culture Comments Culture not ind Blood Type A Positive Blood Type Recheck Required Antibody Screen Negative 06/12/18 06/12/18 07:21 10:52 WBC RBC Hgb Hct MCV MCH MCHC RDW Plt Count MPV Neut % (Auto) Lymph % (Auto) [place] % (Auto) Eos % (Auto) Baso % (Auto) Neut # (Auto) Lymph # (Auto) [place] # (Auto) Eos # (Auto) Baso # (Auto) WBC Differential Differential Comment PT INR APTT Sodium Potassium Chloride Carbon Dioxide Anion Gap BUN Creatinine Estimated GFR POC Glucose 186 H 152 H Random Glucose Calcium Urine Color Urine Clarity Urine pH Ur Specific [place] Urine Protein Urine Glucose (UA) Urine Ketones Urine Occult Blood Urine Nitrate Urine Bilirubin Urine Urobilinogen Ur Leukocyte Esterase Urine RBC Urine WBC Ur Squamous Epith Cells Urine Mucus Micro UA Comment Ur Microscopic Review Urine Culture Comments Blood Type Blood Type Recheck Antibody Screen - Imaging Impressions Cervical Spine CT 06/11/18 12:51 CONCLUSION: 1. No acute fracture or prevertebral soft tissue swelling. 2. Moderate spinal stenosis and bilateral foraminal narrowing at C5-6. 3. Mild spinal stenosis and moderate left neuroforaminal narrowing at C4-C5. 4. Severe left neuroforaminal narrowing and moderate right neuroforaminal narrowing without spinal stenosis at C3-4. 5. Grade I anterolisthesis of C7 in relation to T1. 6. Moderate left neuroforaminal narrowing at C2-3 and C6-7. 7. Straightening of the normal cervical lordosis. Chest X-Ray 06/11/18 12:51 CONCLUSION: Negative examination. Face CT 06/11/18 12:51 CONCLUSION: 1. Left frontal subcutaneous hematoma. No evidence of underlying facial fracture or significant sinus disease Head CT 06/11/18 12:51 CONCLUSION: 1. Negative CT Head non contrast. Mild atrophy . Pelvis X-Ray 06/11/18 12:51 CONCLUSION: Negative examination. Chest CT 06/11/18 12:53 CONCLUSION: 1. Negative CT Chest non contrast. Shoulder X-Ray 06/11/18 12:53 CONCLUSION: Oblique displaced humeral shaft fracture as described above. Humerus X-Ray 06/11/18 13:08 CONCLUSION: Significantly displaced humeral fracture as above Wrist X-Ray 06/11/18 14:47 CONCLUSION: 1. 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 2. No acute fracture, dislocation or soft tissue swelling. Assessment and Plan - Assessment and Plan Right proximal humeral shaft fracture status post ORIF POD 0 Nonweightbearing right upper extremity Physical therapy for pendulum swings Sling and swath Daily dressing changes beginning POD 2 Case management for home health care Plan for discharge on Friday or Friday depending on pain management Follow-up with Dr. Feliciano or FELISHA in 2 weeks
--- NOTE | 2018-06-12 10:58 | P.DCO ---
- Occupational Therapy Right Upper Extremity Weight Bearing: Non-weight bearing Right Upper Extremity Range of Motion: Pendular - Nursing Dressing changes: Daily dressing change (Every other day if no drainage), Xeroform, Coverderm/Primapore - Certification Need for Home Health services: I have seen patient Lisa Dennis on 06/12/18. My clinical findings support the need for the requested home health care services because: Need for Home Health Services: Limited mobility due to disease progression Homebound Certification: I certify that my clinical findings support that this patient is homebound because: Homebound Certification: Post-op weakness
[2018-06-12] MEDS ORDERED: ceFAZolin Inj 2,000 MG in Sodium Chlor 0.9% Inj 80 ML IV.SIG SCH (11:00)
--- NOTE | 2018-06-12 11:29 | P.CONOP ---
[facility] Orthopedics Consult [facility] - [facility] Consult date: 06/12/18 Chief complaint: Humerus fracture Narrative: Lisa is a 73-year-old female. She has multiple medical problems including fibromyalgia, arthritis, poor balance, frequent falls, diabetes, sleep apnea, and arthritis. She was in her kitchen walking when she missed a step and fell. She fell forward and hit her right arm and shoulder. She denies loss of consciousness. She did hit her head. She was in the emergency room via EMS. X -rays revealed a displaced humeral shaft fracture. She is currently been admitted for treatment of this injury. Pain is severe and intense with motion. Pain is improved with rest. She denies any arm pain prior to her fall. She is right-hand dominant. Review of Systems Patient denies fevers, chills, weight loss, headache, visual changes, hearing loss, chest pain, palpitations, shortness of breath, nausea, vomiting, no urinary changes, diarrhea, bowel changes, neck pain, back pain, skin rashes, weakness of extremities, easy bleeding, enlarged lymph nodes, numbness of extremities, anxiety, or depression. Patient's social history, past medical history, and family history were reviewed on chart and with patient. [facility] - History History Provided By: Patient - Medical History Medical History: Medical History (Last Reviewed 06/12/18 @ 11:25 by David Soto MD) Arthritis Chronic pain Diabetes Fibromyalgia Frequent falls HBP (high blood pressure) History of MRSA infection Hx of hysterectomy Obesity Osteoarthritis Sleep apnea Urinary incontinence - Surgical History Surgical History: Surgical History (Last Reviewed 06/12/18 @ 11:25 by David Soto MD) History of appendectomy History of right knee surgery Hx of neck surgery Status post right foot surgery - Family History Family History: Family History (Last Reviewed 06/12/18 @ 11:25 by David Soto MD) Father Coronary artery disease Stroke Mother Coronary artery disease Diabetes - Social History I have reviewed the patient's Social History: Yes - Tobacco History Second Hand Smoke Exposure: No Smoking Status: Never smoker - Alcohol History How Often Do You Have a Drink Containing Alcohol: Never - Substance Use History Substance History: No History of Abuse - Travel History Recent Travel in the [facility] Within the Last 8 Weeks: No Recent Travel Out of the Country Within the Last 8 Weeks: No - Immunization History Tetanus Immunization: >5 Years Hx Influenza Vaccine This Season: No Medications and Allergies Active Medications: Active Medications Acetaminophen (Tylenol) 650 mg PO Q4H PRN PRN Reason: Temp > 100.4 Hydrocodone Bitart/Acetaminophen (Perry 7.5/325) 1 tab PO Q3H PRN PRN Reason: Pain Scale 3-10 Al Hydroxide/Mg Hydroxide (Milk Of Magnesia Liq) 30 ml PO Q12H PRN PRN Reason: Mild Constipation Bisacodyl (Dulcolax Supp) 10 mg RECTAL DAILY PRN PRN Reason: SEVERE CONSITIPATION Calcium/Vitamin D (Oscal With D 250/125 Mg) 1 tab PO TID KIANNA Dextrose (D50w Vial) 50 ml IV.PUSH UNSCH PRN PRN Reason: PER HYPOGLYCEMIA PROTOCOL Diphenhydramine HCl (Benadryl) 25 mg PO Q6H PRN PRN Reason: ITCHING Glucagon (Glucagon Inj) 1 mg OTHER PRN PRN PRN Reason: for Hypoglycemia Protocol Hydromorphone HCl (Dilaudid Pf Inj) 0.5 mg IV.PUSH Q4H PRN PRN Reason: PAIN SCALE 7 TO 10 SEVERE Last Admin: 06/12/18 05:35 Dose: 0.5 mg Sodium Chloride (Ns Inj) 1,000 mls @ 100 mls/hr IV.CONT .Q10H [facility] Last Admin: 06/12/18 01:51 Dose: Not Given Lactated Ringer's (Lr 1000 Ml Inj) 1,000 mls @ 30 mls/hr IV.CONT .Q24H ONE Stop: 06/13/18 04:29 Last Admin: 06/12/18 07:25 Dose: 30 mls/hr Sodium Chloride (Ns Inj) 500 mls @ 30 mls/hr IV.CONT .[id number] ONE Stop: 06/12/18 21:09 Lactated Ringer's (Lr 1000 Ml Inj) 1,000 mls @ 50 mls/hr IV.CONT .Q20H KIANNA Cefazolin Sodium 2,000 mg/ (Sodium Chloride) 120 mls @ 240 mls/hr IV.SIG Q8H KIANNA Stop: 06/13/18 09:29 Insulin Aspart (Novolog Insulin Correctional Sugar Inj) 0 unit SQ ACHS KIANNA; Protocol Last Admin: 06/12/18 07:25 Dose: Not Given Lactulose (Lactulose Liq) 30 ml PO DAILY PRN PRN Reason: SEVERE CONSITIPATION Metoprolol Tartrate (Lopressor) 100 mg PO BID [facility] Last Admin: 06/12/18 11:06 Dose: Not Given Morphine Sulfate (Morphine Inj) 4 mg IV.PUSH Q3H PRN PRN Reason: BREAKTHROUGH PAIN Ondansetron HCl (Zofran Inj) 4 mg IV.PUSH Q6H PRN PRN Reason: NAUSEA OR VOMITING Last Admin: 06/11/18 23:47 Dose: 4 mg Ondansetron HCl (Zofran Odt) 4 mg PO Q6H PRN PRN Reason: NAUSEA OR VOMITING Oxycodone/Acetaminophen (Percocet 5/325 Mg) 1 tab PO Q4H PRN PRN Reason: PAIN SCALE 4 TO 6 MODERATE Last Admin: 06/12/18 02:23 Dose: 1 tab Senna/Docusate Sodium (Camryn-Colace) 1 tab PO BID [facility] Sennosides (Senokot) 17.2 mg PO Q12H PRN PRN Reason: Moderate Constipation Sodium Chloride (Ns Flush) 2 ml IV.FLUSH PRN PRN PRN Reason: FLUSH AFTER USING IV ACCESS Last Admin: 06/11/18 13:50 Dose: 2 ml Sodium Chloride (Ns Flush) 2 ml IV.FLUSH BID [facility] Sodium Chloride (Ns Flush) 2 ml IV.FLUSH PRN PRN PRN Reason: FLUSH AFTER USING IV ACCESS Vitamin D (Vitamin D3) 5,000 unit PO DAILY [facility] Allergies Allergy/AdvReac Type Severity Reaction Status Date / Time vancomycin Allergy Severe Rash Verified 06/11/18 12:41 Home Medications Medication Instructions Recorded Confirmed Type glimepiride 4 mg PO QAM 06/11/18 06/11/18 History metoprolol tartrate 100 mg PO BID 06/11/18 06/11/18 History Exam Vital signs: Vital Signs 06/11/18 12:35 06/11/18 12:51 06/11/18 14:00 Temperature 98.1 F 97.9 F Pulse Rate 52 L 52 L 68 Respiratory Rate 18 18 Blood Pressure 172/79 H 152/83 H Pulse Oximetry 99 99 97 06/11/18 14:20 06/11/18 15:31 06/11/18 16:00 Temperature 98.1 F 97.5 F L Pulse Rate 63 60 Respiratory Rate 18 18 18 Blood Pressure 152/92 H 163/74 H Pulse Oximetry 95 92 L 06/11/18 17:00 06/11/18 20:00 06/12/18 00:00 Temperature 97.5 F L 98.3 F 98.2 F Pulse Rate 60 78 65 Respiratory Rate 18 18 18 Blood Pressure 163/74 H 153/85 H 168/85 H Pulse Oximetry 92 L 96 95 06/12/18 04:00 06/12/18 08:35 06/12/18 10:45 Temperature 98.1 F 97.8 F Pulse Rate 63 67 95 H Respiratory Rate 18 16 14 Blood Pressure 152/92 H 164/100 H 205/95 H Pulse Oximetry 95 95 90 L 06/12/18 10:46 06/12/18 10:48 06/12/18 10:49 Temperature Pulse Rate 95 H 94 H 93 H Respiratory Rate 14 14 22 Blood Pressure 210/98 H 194/107 H 189/101 H Pulse Oximetry 88 L 88 L 90 L 06/12/18 10:54 06/12/18 11:00 06/12/18 11:15 Temperature Pulse Rate 93 H 88 84 Respiratory Rate 19 15 14 Blood Pressure 183/97 H 177/90 H 169/80 H Pulse Oximetry 92 L 96 92 L Intake & Output 06/11/18 06/12/18 06/12/18 18:59 06:59 18:59 Intake Total 360 / 360 0 / 0 1700 / 1700 Output Total 75 / 75 Balance 360 / 360 0 / 0 1625 / 1625 Weight 113.398 kg 113.98 kg Intake: Oral 360 / 360 0 / 0 Anesthesia Amount 1700 / 1700 Output: Estimated Blood Loss 75 / 75 Other: # Voids 2 2 Date of Last Bowel Movement 06/10/18 Weight On Admission 113.98 kg Narrative: Lisa is a pleasant 73-year-old female. She is moderately overweight. General: Awake and alert. No acute distress. Appears well-developed well- nourished Head: Normocephalic, she does have some bruising around her face and orbits, Pupils are equal Neck: Soft, nontender, trachea midline Abdomen: Soft, nondistended Examination of right arm reveals pain with any attempted shoulder or elbow motion. She has swelling and bruising of her arm. She has some deformity visible of her arm. Skin is intact. Radial pulse is palpable. Normal capillary refill in fingers. Sensation is intact in radial, ulnar, and median nerve distributions. She is able to flex and extend her fingers and wrist. No lymphadenopathy noted. Examination of left arm reveals no pain or deformity with shoulder, elbow, or wrist motion. Skin is intact. Radial pulse is palpable. Normal capillary refill in fingers. Sensation is intact in radial, ulnar, and median nerve distributions. [employer] strength is +5. No lymphadenopathy noted. Examination of left lower extremity reveals no pain or deformity with hip, knee , or ankle motion. Skin is intact. Sensation is intact in left foot. Dorsalis pedis pulse is palpable. Normal capillary refill and feet. Thigh and calf compartments are soft. No lymphadenopathy noted. +5 strength of ankle dorsiflexion and plantarflexion. Examination of right lower extremity reveals no pain or deformity with hip, knee , or ankle motion. Skin is intact. Sensation is intact in right foot. Dorsalis pedis pulse is palpable. Normal capillary refill and feet. Thigh and calf compartments are soft. No lymphadenopathy noted. +5 strength of ankle dorsiflexion and plantarflexion. Results - Labs Result Diagrams: 06/11/18 13:00 06/11/18 13:00 Labs: Laboratory Results - last 24 hr 06/11/18 06/11/18 06/11/18 13:00 13:00 13:00 WBC 13.8 H RBC 4.43 Hgb 13.8 Hct 40.4 MCV 91.3 MCH 31.2 MCHC 34.2 RDW 13.4 Plt Count 160 MPV 9.8 Neut % (Auto) 85.1 H Lymph % (Auto) 9.7 [place] % (Auto) 4.2 Eos % (Auto) 0.8 Baso % (Auto) 0.2 Neut # (Auto) 11.7 H Lymph # (Auto) 1.3 [place] # (Auto) 0.6 Eos # (Auto) 0.1 Baso # (Auto) 0.0 WBC Differential . Differential Comment Auto diff final PT 10.2 INR 1.0 APTT 22.8 L Sodium 141 Potassium 3.8 Chloride 103 Carbon Dioxide 30.4 Anion Gap 8 BUN 18 Creatinine 0.84 Estimated GFR 67 L POC Glucose Random Glucose 273 H Calcium 8.5 Urine Color Urine Clarity Urine pH Ur Specific Mallard Urine Protein Urine Glucose (UA) Urine Ketones Urine Occult Blood Urine Nitrate Urine Bilirubin Urine Urobilinogen Ur Leukocyte Esterase Urine RBC Urine WBC Ur Squamous Epith Cells Urine Mucus Micro UA Comment Ur Microscopic Review Urine Culture Comments Blood Type Blood Type Recheck Antibody Screen 06/11/18 06/11/18 06/12/18 13:00 20:49 05:25 WBC RBC Hgb Hct MCV MCH MCHC RDW Plt Count MPV Neut % (Auto) Lymph % (Auto) [place] % (Auto) Eos % (Auto) Baso % (Auto) Neut # (Auto) Lymph # (Auto) [place] # (Auto) Eos # (Auto) Baso # (Auto) WBC Differential Differential Comment PT INR APTT Sodium Potassium Chloride Carbon Dioxide Anion Gap BUN Creatinine Estimated GFR POC Glucose 226 H Random Glucose Calcium Urine Color Yellow Urine Clarity Hazy H Urine pH 6.0 Ur Specific Mallard 1.024 Urine Protein Negative Urine Glucose (UA) 500 or greater Urine Ketones Negative Urine Occult Blood Negative Urine Nitrate Negative Urine Bilirubin Negative Urine Urobilinogen Less than 2 Ur Leukocyte Esterase Negative Urine RBC 2 Urine WBC 8 H Ur Squamous Epith Cells 2 Urine Mucus Few H Micro UA Comment Culture not ind Ur Microscopic Review Not Reportable Urine Culture Comments Culture not ind Blood Type A Positive Blood Type Recheck Required Antibody Screen Negative 06/12/18 06/12/18 07:21 10:52 WBC RBC Hgb Hct MCV MCH MCHC RDW Plt Count MPV Neut % (Auto) Lymph % (Auto) [place] % (Auto) Eos % (Auto) Baso % (Auto) Neut # (Auto) Lymph # (Auto) [place] # (Auto) Eos # (Auto) Baso # (Auto) WBC Differential Differential Comment PT INR APTT Sodium Potassium Chloride Carbon Dioxide Anion Gap BUN Creatinine Estimated GFR POC Glucose 186 H 152 H Random Glucose Calcium Urine Color Urine Clarity Urine pH Ur Specific Mallard Urine Protein Urine Glucose (UA) Urine Ketones Urine Occult Blood Urine Nitrate Urine Bilirubin Urine Urobilinogen Ur Leukocyte Esterase Urine RBC Urine WBC Ur Squamous Epith Cells Urine Mucus Micro UA Comment Ur Microscopic Review Urine Culture Comments Blood Type Blood Type Recheck Antibody Screen - Diagnostic results Imaging: Impressions Cervical Spine CT 06/11/18 12:51 CONCLUSION: 1. No acute fracture or prevertebral soft tissue swelling. 2. Moderate spinal stenosis and bilateral foraminal narrowing at C5-6. 3. Mild spinal stenosis and moderate left neuroforaminal narrowing at C4-C5. 4. Severe left neuroforaminal narrowing and moderate right neuroforaminal narrowing without spinal stenosis at C3-4. 5. Grade I anterolisthesis of C7 in relation to T1. 6. Moderate left neuroforaminal narrowing at C2-3 and C6-7. 7. Straightening of the normal cervical lordosis. Chest X-Ray 06/11/18 12:51 CONCLUSION: Negative examination. Face CT 06/11/18 12:51 CONCLUSION: 1. Left frontal subcutaneous hematoma. No evidence of underlying facial fracture or significant sinus disease Head CT 06/11/18 12:51 CONCLUSION: 1. Negative CT Head non contrast. Mild atrophy . Pelvis X-Ray 06/11/18 12:51 CONCLUSION: Negative examination. Chest CT 06/11/18 12:53 CONCLUSION: 1. Negative CT Chest non contrast. Shoulder X-Ray 06/11/18 12:53 CONCLUSION: Oblique displaced humeral shaft fracture as described above. Humerus X-Ray 06/11/18 13:08 CONCLUSION: Significantly displaced humeral fracture as above Wrist X-Ray 06/11/18 14:47 CONCLUSION: 1. 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 2. No acute fracture, dislocation or soft tissue swelling. Assessment and Plan - Problem List (1) Fracture, humerus Code(s): S42.309A - Unspecified fracture of shaft of humerus, unspecified arm, initial encounter for closed fracture Status: Acute Qualifiers: Encounter type: initial encounter Fracture type: closed Fracture morphology: spiral Fracture alignment: displaced Laterality: right - Assessment and Plan Lisa has a 100% displaced right humerus fracture. Treatment options were discussed. I discussed surgical and nonsurgical options. Given the severe pain that she is having and the complete displacement of the fracture, I would recommend surgical open reduction internal fixation. The risk and benefits of surgery were discussed in depth with patient. All of her questions were answered today. Informed consent was confirmed and operative site was marked. The risk and benefits of surgery were discussed in depth with patient. The risk of surgery include bleeding, infection, injuries to arteries, nerves, or blood vessels, weakness or numbness of the hand, infection, wound complications , nonunion, malunion, painful hardware, and need for further surgery. I also discussed medical complications including blood clots, pneumonia, stroke, heart attack, and . Informed consent was obtained and all questions were answered. N.p.o.--plan on surgery this morning Calcium and vitamin D supplementation Physical therapy consult: Pendulum exercises right arm Follow-up with Dr. Soto in 2 weeks SCDs, RICARDA velasquez Case management consult: Patient will likely need shelter facility A mid-level provider in my office (nurse practitioner or physician entry level marketing assistant) may see this patient on follow-up visits and continue to implement the objectives of this plan including: Starting or adjusting medications, injections , cast application, orthotics, brace application, physical therapy, radiological studies (including x-ray, MRI, CT, ultrasound, bone scan), vascular studies, neurologic studies, specialist consultation, and proceeding with surgical management, as appropriate.
--- NOTE | 2018-06-12 12:11 | P.PN ---
Subjective Interval history: follow up for humerus fracture, s/p fall: Patient is awake alert oriented 3. Indicates she had a rough night, could not get comfortable. Pain is well controlled. Going for surgery today. Denies any chest pain, no shortness of breath. No fever. Physical Exam Vital signs: Vital Signs 06/11/18 12:35 06/11/18 12:51 06/11/18 14:00 Temperature 98.1 F 97.9 F Pulse Rate 52 L 52 L 68 Respiratory Rate 18 18 Blood Pressure 172/79 H 152/83 H Pulse Oximetry 99 99 97 06/11/18 14:20 06/11/18 15:31 06/11/18 16:00 Temperature 98.1 F 97.5 F L Pulse Rate 63 60 Respiratory Rate 18 18 18 Blood Pressure 152/92 H 163/74 H Pulse Oximetry 95 92 L 06/11/18 17:00 06/11/18 20:00 06/12/18 00:00 Temperature 97.5 F L 98.3 F 98.2 F Pulse Rate 60 78 65 Respiratory Rate 18 18 18 Blood Pressure 163/74 H 153/85 H 168/85 H Pulse Oximetry 92 L 96 95 06/12/18 04:00 06/12/18 08:35 06/12/18 10:45 Temperature 98.1 F 97.8 F Pulse Rate 63 67 95 H Respiratory Rate 18 16 14 Blood Pressure 152/92 H 164/100 H 205/95 H Pulse Oximetry 95 95 90 L 06/12/18 10:46 06/12/18 10:48 06/12/18 10:49 Temperature Pulse Rate 95 H 94 H 93 H Respiratory Rate 14 14 22 Blood Pressure 210/98 H 194/107 H 189/101 H Pulse Oximetry 88 L 88 L 90 L 06/12/18 10:54 06/12/18 11:00 06/12/18 11:15 Temperature Pulse Rate 93 H 88 84 Respiratory Rate 19 15 14 Blood Pressure 183/97 H 177/90 H 169/80 H Pulse Oximetry 92 L 96 92 L 06/12/18 11:30 06/12/18 11:45 Temperature 97.7 F Pulse Rate 89 84 Respiratory Rate 18 13 Blood Pressure 169/79 H 164/80 H Pulse Oximetry 94 L 93 L Intake & Output 06/11/18 06/12/18 06/12/18 18:59 06:59 18:59 Intake Total 360 / 360 0 / 0 2700 / 2700 Output Total 75 / 75 Balance 360 / 360 0 / 0 2625 / 2625 Weight 113.398 kg 113.98 kg Intake: IV 1000 / 1000 NS Inj 1,000 ML @ 100 mls/hr IV 1000 / 1000 .CONT .Q10H [facility] Rx#:[id number] Oral 360 / 360 0 / 0 Anesthesia Amount 1700 / 1700 Output: Estimated Blood Loss 75 / 75 Other: # Voids 2 2 Date of Last Bowel Movement 06/10/18 Weight On Admission 113.98 kg Narrative: GENERAL: 73-year-old obese female, no apparent distress. SKIN: Midforehead hematoma noted, left periorbital bruising, mild bruising noted over right eyelid. Abrasion over right knee. Bruising noted top lip. HEAD: Atraumatic. Normocephalic. EYES: Pupils equal and round. No scleral icterus. No injection or drainage. ENT: No nasal bleeding or discharge. Mucous membranes pink and moist. NECK: Trachea midline. No JVD. CARDIOVASCULAR: Regular rate and rhythm. RESPIRATORY: No accessory muscle use. Clear to auscultation. Breath sounds equal bilaterally. GASTROINTESTINAL: Abdomen soft, non-tender, nondistended. Hepatic and splenic margins not palpable. MUSCULOSKELETAL: Right upper extremity in splint, intact sensation to right fingertips, right radial pulse 2+. Right forearm tender to palpation. Capillary refill less than 3 seconds. No other joint abnormality. NEUROLOGICAL: Awake and alert and oriented 3. No obvious cranial nerve deficits. Normal speech. PSYCHIATRIC: Appropriate mood and affect; insight and judgment normal. Results - Labs CBC & Chem 7: 06/11/18 13:00 06/11/18 13:00 Laboratory Results - last 24 hr 06/11/18 06/11/18 06/11/18 13:00 13:00 13:00 WBC 13.8 H RBC 4.43 Hgb 13.8 Hct 40.4 MCV 91.3 MCH 31.2 MCHC 34.2 RDW 13.4 Plt Count 160 MPV 9.8 Neut % (Auto) 85.1 H Lymph % (Auto) 9.7 [place] % (Auto) 4.2 Eos % (Auto) 0.8 Baso % (Auto) 0.2 Neut # (Auto) 11.7 H Lymph # (Auto) 1.3 [place] # (Auto) 0.6 Eos # (Auto) 0.1 Baso # (Auto) 0.0 WBC Differential . Differential Comment Auto diff final PT 10.2 INR 1.0 APTT 22.8 L Sodium 141 Potassium 3.8 Chloride 103 Carbon Dioxide 30.4 Anion Gap 8 BUN 18 Creatinine 0.84 Estimated GFR 67 L POC Glucose Random Glucose 273 H Calcium 8.5 Urine Color Urine Clarity Urine pH Ur Specific [place] Urine Protein Urine Glucose (UA) Urine Ketones Urine Occult Blood Urine Nitrate Urine Bilirubin Urine Urobilinogen Ur Leukocyte Esterase Urine RBC Urine WBC Ur Squamous Epith Cells Urine Mucus Micro UA Comment Ur Microscopic Review Urine Culture Comments Blood Type Blood Type Recheck Antibody Screen 06/11/18 06/11/18 06/12/18 13:00 20:49 05:25 WBC RBC Hgb Hct MCV MCH MCHC RDW Plt Count MPV Neut % (Auto) Lymph % (Auto) [place] % (Auto) Eos % (Auto) Baso % (Auto) Neut # (Auto) Lymph # (Auto) [place] # (Auto) Eos # (Auto) Baso # (Auto) WBC Differential Differential Comment PT INR APTT Sodium Potassium Chloride Carbon Dioxide Anion Gap BUN Creatinine Estimated GFR POC Glucose 226 H Random Glucose Calcium Urine Color Yellow Urine Clarity Hazy H Urine pH 6.0 Ur Specific [place] 1.024 Urine Protein Negative Urine Glucose (UA) 500 or greater Urine Ketones Negative Urine Occult Blood Negative Urine Nitrate Negative Urine Bilirubin Negative Urine Urobilinogen Less than 2 Ur Leukocyte Esterase Negative Urine RBC 2 Urine WBC 8 H Ur Squamous Epith Cells 2 Urine Mucus Few H Micro UA Comment Culture not ind Ur Microscopic Review Not Reportable Urine Culture Comments Culture not ind Blood Type A Positive Blood Type Recheck Required Antibody Screen Negative 06/12/18 06/12/18 07:21 10:52 WBC RBC Hgb Hct MCV MCH MCHC RDW Plt Count MPV Neut % (Auto) Lymph % (Auto) [place] % (Auto) Eos % (Auto) Baso % (Auto) Neut # (Auto) Lymph # (Auto) [place] # (Auto) Eos # (Auto) Baso # (Auto) WBC Differential Differential Comment PT INR APTT Sodium Potassium Chloride Carbon Dioxide Anion Gap BUN Creatinine Estimated GFR POC Glucose 186 H 152 H Random Glucose Calcium Urine Color Urine Clarity Urine pH Ur Specific [place] Urine Protein Urine Glucose (UA) Urine Ketones Urine Occult Blood Urine Nitrate Urine Bilirubin Urine Urobilinogen Ur Leukocyte Esterase Urine RBC Urine WBC Ur Squamous Epith Cells Urine Mucus Micro UA Comment Ur Microscopic Review Urine Culture Comments Blood Type Blood Type Recheck Antibody Screen - Imaging Impressions Cervical Spine CT 06/11/18 12:51 CONCLUSION: 1. No acute fracture or prevertebral soft tissue swelling. 2. Moderate spinal stenosis and bilateral foraminal narrowing at C5-6. 3. Mild spinal stenosis and moderate left neuroforaminal narrowing at C4-C5. 4. Severe left neuroforaminal narrowing and moderate right neuroforaminal narrowing without spinal stenosis at C3-4. 5. Grade I anterolisthesis of C7 in relation to T1. 6. Moderate left neuroforaminal narrowing at C2-3 and C6-7. 7. Straightening of the normal cervical lordosis. Chest X-Ray 06/11/18 12:51 CONCLUSION: Negative examination. Face CT 06/11/18 12:51 CONCLUSION: 1. Left frontal subcutaneous hematoma. No evidence of underlying facial fracture or significant sinus disease Head CT 06/11/18 12:51 CONCLUSION: 1. Negative CT Head non contrast. Mild atrophy . Pelvis X-Ray 06/11/18 12:51 CONCLUSION: Negative examination. Chest CT 06/11/18 12:53 CONCLUSION: 1. Negative CT Chest non contrast. Shoulder X-Ray 06/11/18 12:53 CONCLUSION: Oblique displaced humeral shaft fracture as described above. Humerus X-Ray 06/11/18 13:08 CONCLUSION: Significantly displaced humeral fracture as above Wrist X-Ray 06/11/18 14:47 CONCLUSION: 1. 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 2. No acute fracture, dislocation or soft tissue swelling. 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 Patient tripped and fell face forward hitting her forehead, right arm and shoulder. No LOC. Imaging studies were completed, CT of the head and chest negative. She was found with rith midhumerus spiral/oblique fracture. She was placed in a splint and case was discussed with orthopedic surgeon. Status post mechanical fall, right mid humeral spiral oblique fracture. -Appreciate orthopedic input, going for surgery this morning. Dilaudid as well as Barto as needed have been ordered for pain management Type 2 diabetes Accu-Cheks before meals and at bedtime with insulin therapy as needed -Hold oral hypoglycemic for now, as patient is n.p.o. after midnight Diabetic diet History of frequent falls, prior history of cervical neck surgery. -Physical therapy for consultation Chronic pain, history of fibromyalgia and back pain. -Continue with pain management Obstructive sleep apnea, uses CPAP at home Patient will have significant other to bring home CPAP for use. Hypertension, well controlled Continue metoprolol. Consult case management for discharge planning, home health care and PT. SCDs for DVT prophylaxis Code Status: Full code Discussed Condition With: Patient and corporate communications specialist Planning: Possible discharge tomorrow with home health care and physical therapy. (1) Fall Qualifiers: Encounter type: initial encounter Qualified Code(s): W19.XXXA - Unspecified fall, initial encounter (2) Fracture, humerus Qualifiers: Encounter type: initial encounter Fracture type: closed Fracture morphology : spiral Fracture alignment: displaced Laterality: right (3) Hematoma of frontal scalp Qualifiers: Encounter type: initial encounter Qualified Code(s): S00.03XA - Contusion of scalp, initial encounter (5) Chronic back pain Qualifiers: Back pain location: low back pain Back pain laterality: unspecified Sciatica presence: without sciatica Qualified Code(s): M54.5 - Low back pain; G89.29 - Other chronic pain (8) Hypertension Qualifiers: Hypertension type: essential hypertension Qualified Code(s): I10 - Essential (primary) hypertension
--- NOTE | 2018-06-12 13:11 | XR ---
EXAM DATE: 06/12/2018 12:59 PM EDT AGE/SEX: 73 years / Female INDICATIONS: Right humerus open reduction internal fixation. CLINICAL DATA: This is the patient's initial encounter. Patient reports that signs and symptoms have been present for 1 day and indicates a pain score of Nonresponsive. MEDICAL/SURGICAL HISTORY: None. None. COMPARISON: No prior exams available for comparison. FINDINGS: Plate with screws is seen bridging the fracture of the humerus. Alignment is anatomic. CONCLUSION: Anatomic alignment. Electronically signed by: Gerardo Grissom MD 06/12/2018 1:10 PM EDT
[2018-06-12] MEDS: Calcium/Vitamin D 250/125 MG Tablet PO SCH ×2 (13:44→17:38)
[2018-06-12] MEDS: ceFAZolin Inj 2,000 MG in Sodium Chlor 0.9% Inj 100 ML IV.SIG SCH (17:28)
[2018-06-12] MEDS: Senna/Docusate Sodium 8.6/50 MG Tablet PO SCH (20:46)
[2018-06-13] MEDS: ceFAZolin Inj 2,000 MG in Sodium Chlor 0.9% Inj 100 ML IV.SIG SCH ×2 (02:27→08:29)
[2018-06-13] MEDS: Sod Chloride 0.9% Inj 1,000 ML IV.CONT SCH ×2 (02:27→08:30)
--- NOTE | 2018-06-13 07:55 | P.PNOP ---
Subjective Interval history: pt has post operative right arm pain otherwise doing well, would like to go home today Physical Exam Vital signs: Vital Signs 06/12/18 08:35 06/12/18 10:45 06/12/18 10:46 Temperature 97.8 F Pulse Rate 67 95 H 95 H Respiratory Rate 16 14 14 Blood Pressure 164/100 H 205/95 H 210/98 H Pulse Oximetry 95 90 L 88 L 06/12/18 10:48 06/12/18 10:49 06/12/18 10:54 Temperature Pulse Rate 94 H 93 H 93 H Respiratory Rate 14 22 19 Blood Pressure 194/107 H 189/101 H 183/97 H Pulse Oximetry 88 L 90 L 92 L 06/12/18 11:00 06/12/18 11:15 06/12/18 11:30 Temperature Pulse Rate 88 84 89 Respiratory Rate 15 14 18 Blood Pressure 177/90 H 169/80 H 169/79 H Pulse Oximetry 96 92 L 94 L 06/12/18 11:45 06/12/18 12:00 06/12/18 14:15 Temperature 97.7 F 98.2 F Pulse Rate 84 83 Respiratory Rate 13 14 16 Blood Pressure 164/80 H 177/79 H Pulse Oximetry 93 L 93 L 06/12/18 16:00 06/12/18 17:59 06/12/18 20:00 Temperature 98.4 F 99.6 F Pulse Rate 80 79 Respiratory Rate 16 16 18 Blood Pressure 161/74 H 182/82 H Pulse Oximetry 92 L 96 06/12/18 23:16 06/13/18 00:00 06/13/18 03:24 Temperature 99.4 F Pulse Rate 75 Respiratory Rate 15 18 20 Blood Pressure 167/76 H Pulse Oximetry 96 06/13/18 04:00 Temperature 98.2 F Pulse Rate 69 Respiratory Rate 18 Blood Pressure 165/76 H Pulse Oximetry 96 Intake & Output 06/12/18 06/13/18 06/13/18 18:59 06:59 18:59 Intake Total 2820 / 2820 240 / 240 Output Total 75 / 75 Balance 2745 / 2745 240 / 240 Intake: IV 1120 / 1120 120 / 120 NS Inj 1,000 ML @ 100 mls/hr IV 1000 / 1000 .CONT .Q10H [facility] Rx#:[id number] Ancef Inj 2,000 MG In NS Inj 120 / 120 120 / 120 100 ML @ 240 mls/hr IV.SIG Q8H [facility] Rx#:[id number] Oral 120 / 120 Anesthesia Amount 1700 / 1700 Output: Estimated Blood Loss 75 / 75 Other: # Voids 4 Date of Last Bowel Movement 06/10/18 Narrative: also seen and examined by Dr. Gordo Drake sitting up in chair sling to right arm +NVI Results - Labs CBC & Chem 7: 06/11/18 13:00 06/11/18 13:00 Laboratory Results - last 24 hr 06/12/18 06/12/18 06/12/18 10:52 17:23 19:59 POC Glucose 152 H 310 H 195 H - Imaging Impressions Humerus X-Ray 06/12/18 00:00 CONCLUSION: Anatomic alignment. Assessment and Plan - Problem List (1) Fracture, humerus Code(s): S42.309A - Unspecified fracture of shaft of humerus, unspecified arm, initial encounter for closed fracture Status: Acute Qualifiers: Encounter type: initial encounter Fracture type: closed Fracture morphology: spiral Fracture alignment: displaced Laterality: right - Assessment and Plan POD # 1 s/p ORIF right humerus Physical therapy consult: Pendulum exercises right arm, sling Follow-up with Dr. Feliciano in 2 weeks SCDs, RICARDA velasquez Case management consult: Patient states she would like to go home, has ex that can help her, does not want to go to rehab
[2018-06-13] MEDS: Insulin NovoLOG Aspart Correctional Sugar Inj SQ SCH ×4 (08:28→21:12)
[2018-06-13] MEDS: Metoprolol Tartrate 100 MG Tablet PO SCH ×2 (08:30→21:23)
[2018-06-13] MEDS: Senna/Docusate Sodium 8.6/50 MG Tablet PO SCH ×2 (08:30→21:23)
[2018-06-13] MEDS: Calcium/Vitamin D 250/125 MG Tablet PO SCH ×3 (08:30→17:30)
--- NOTE | 2018-06-13 09:39 | P.PN ---
Subjective Interval history: follow up for humerus fracture, s/p fall: Patient is awake alert oriented 3. s /p ORIF right humerus 06/12, sitting up in chair, took 2 nurses to get out of bed. Sleepy, awakes to voice, oriented x3. Wants to go home not rehab. No cp, no sob, Pain stable. No fever. BP elevated up to 180s last night. Physical Exam Vital signs: Vital Signs 06/12/18 10:45 06/12/18 10:46 06/12/18 10:48 Temperature 97.8 F Pulse Rate 95 H 95 H 94 H Respiratory Rate 14 14 14 Blood Pressure 205/95 H 210/98 H 194/107 H Pulse Oximetry 90 L 88 L 88 L 06/12/18 10:49 06/12/18 10:54 06/12/18 11:00 Temperature Pulse Rate 93 H 93 H 88 Respiratory Rate 22 19 15 Blood Pressure 189/101 H 183/97 H 177/90 H Pulse Oximetry 90 L 92 L 96 06/12/18 11:15 06/12/18 11:30 06/12/18 11:45 Temperature 97.7 F Pulse Rate 84 89 84 Respiratory Rate 14 18 13 Blood Pressure 169/80 H 169/79 H 164/80 H Pulse Oximetry 92 L 94 L 93 L 06/12/18 12:00 06/12/18 14:15 06/12/18 16:00 Temperature 98.2 F 98.4 F Pulse Rate 83 80 Respiratory Rate 14 16 16 Blood Pressure 177/79 H 161/74 H Pulse Oximetry 93 L 92 L 06/12/18 17:59 06/12/18 20:00 06/12/18 23:16 Temperature 99.6 F Pulse Rate 79 Respiratory Rate 16 18 15 Blood Pressure 182/82 H Pulse Oximetry 96 06/13/18 00:00 06/13/18 03:24 06/13/18 04:00 Temperature 99.4 F 98.2 F Pulse Rate 75 69 Respiratory Rate 18 20 18 Blood Pressure 167/76 H 165/76 H Pulse Oximetry 96 96 06/13/18 08:00 Temperature 98.8 F Pulse Rate 69 Respiratory Rate 18 Blood Pressure 137/63 Pulse Oximetry 95 Intake & Output 06/12/18 06/13/18 06/13/18 18:59 06:59 18:59 Intake Total 2820 / 2820 240 / 240 1000 / 1000 Output Total 75 / 75 Balance 2745 / 2745 240 / 240 1000 / 1000 Intake: IV 1120 / 1120 120 / 120 1000 / 1000 LR 1000 mL Inj 1,000 ML @ 50 1000 / 1000 mls/hr IV.CONT .Q20H [facility] Rx#: [id number] NS Inj 1,000 ML @ 100 mls/hr IV 1000 / 1000 .CONT .Q10H [facility] Rx#:[id number] Ancef Inj 2,000 MG In NS Inj 120 / 120 120 / 120 100 ML @ 240 mls/hr IV.SIG Q8H [facility] Rx#:[id number] Oral 120 / 120 Anesthesia Amount 1700 / 1700 Output: Estimated Blood Loss 75 / 75 Other: # Voids 4 Date of Last Bowel Movement 06/10/18 Narrative: GENERAL: 73-year-old obese female, no apparent distress. SKIN: Midforehead hematoma noted, left periorbital bruising, mild bruising noted over right eyelid. Abrasion over right knee. Bruising noted top lip. HEAD: Atraumatic. Normocephalic. EYES: Pupils equal and round. No scleral icterus. No injection or drainage. ENT: No nasal bleeding or discharge. Mucous membranes pink and moist. NECK: Trachea midline. No JVD. CARDIOVASCULAR: Regular rate and rhythm. RESPIRATORY: No accessory muscle use. Clear to auscultation. Breath sounds equal bilaterally. GASTROINTESTINAL: Abdomen soft, non-tender, nondistended. Hepatic and splenic margins not palpable. MUSCULOSKELETAL: Right upper extremity with dressing D/I, has sling. Intact sensation to right fingertips, right radial pulse 2+. Right FA swelling. Capillary refill less than 3 seconds. No other joint abnormality. NEUROLOGICAL: Sleepy, Awakes to voice, oriented 3. No obvious cranial nerve deficits. Normal speech. PSYCHIATRIC: Appropriate mood and affect; insight and judgment normal. Results - Labs CBC & Chem 7: 06/11/18 13:00 06/11/18 13:00 Laboratory Results - last 24 hr 06/12/18 06/12/18 06/12/18 10:52 17:23 19:59 POC Glucose 152 H 310 H 195 H 06/13/18 08:25 POC Glucose 339 H - Imaging Impressions Humerus X-Ray 06/12/18 00:00 CONCLUSION: Anatomic alignment. 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 Patient tripped and fell face forward hitting her forehead, right arm and shoulder. No LOC. Imaging studies were completed, CT of the head and chest negative. She was found with rith midhumerus spiral/oblique fracture. She was placed in a splint and case was discussed with orthopedic surgeon. Status post mechanical fall, right mid humeral spiral oblique fracture. s/p ORIF right humerus / POD #1 -Appreciate orthopedic input -post op care Continue with Kabetogama PRN and Morphine. DC Diloscarid -PT/OT, recommendations noted. PT recommends SNF. Pt. unsteady unable to use walker. -CBC in am Type 2 diabetes BGM elevated, up to 300 Accu-Cheks before meals and at bedtime with insulin therapy as needed, inc. to medium scale -Resume Glimepiride Diabetic diet -Hgb A1C in am History of frequent falls, prior history of cervical neck surgery. -Physical therapy Chronic pain, history of fibromyalgia and back pain. -Continue with pain management Obstructive sleep apnea, uses CPAP at home Patient will have significant other to bring home CPAP for use. Hypertension, elevated up to 180s Continue metoprolol. -Add Lisinopril 5 mg po daily -Vasotec PRN Enc. IS use SCDs for DVT prophylaxis D/W pt, wants home but not safe for dc. Significant other can help some but not around the clock. She agrees with SNF CM consult for SNF placement. Code Status: Full code Discussed Condition With: Pt, RN, CM Discharge Planning: Pt. ready for SNF, once arrangements made. D/W CM. (1) Fall Qualifiers: Encounter type: initial encounter Qualified Code(s): W19.XXXA - Unspecified fall, initial encounter (2) Fracture, humerus Qualifiers: Encounter type: initial encounter Fracture type: closed Fracture morphology : spiral Fracture alignment: displaced Laterality: right (3) Hematoma of frontal scalp Qualifiers: Encounter type: initial encounter Qualified Code(s): S00.03XA - Contusion of scalp, initial encounter (5) Chronic back pain Qualifiers: Back pain location: low back pain Back pain laterality: unspecified Sciatica presence: without sciatica Qualified Code(s): M54.5 - Low back pain; G89.29 - Other chronic pain (8) Hypertension Qualifiers: Hypertension type: essential hypertension Qualified Code(s): I10 - Essential (primary) hypertension
[2018-06-13] MEDS: Glimepiride 4 MG Tablet PO SCH (11:10)
[2018-06-13] MEDS: Lisinopril 5 MG Tablet PO SCH (11:10)
--- NOTE | 2018-06-13 13:31 | ECG ---
Date Performed: 06/11/2018 Time Performed: 14:42:34 PTAGE: 73 years EKG: Sinus rhythm NONSPECIFIC T-WAVE ABNORMALITY BORDERLINE ECG PREVIOUS TRACING : 10/07/2015 21.37 Since the previous tracing, no significant change noted DOCTOR: Mp Sanchez Interpretating Date/Time 06/13/2018 13:30:22
[2018-06-14] MEDS: Morphine Inj 4 MG/ML Vial IV.PUSH PRN ×2 (02:20→08:53)
[2018-06-14 05:38] LABS: Hematocrit 34.8 % (35.0-46.0); Hemoglobin 11.9 gm/dL (11.6-15.3); Mean Corpuscular HGB Conc 34.3 % (32.0-36.0); Mean Corpuscular Hemoglobin 31.7 pg (27.0-34.0); Mean Corpuscular Volume 92.5 fL (80.0-100.0); Mean Platelet Volume 9.5 fL (7.0-11.0); Platelet Count 147 th/mm3 (150-450); Red Blood Count 3.76 mil/mm3 (4.00-5.30); White Blood Count 9.7 th/mm3 (4.0-11.0)
[2018-06-14] MEDS: Glimepiride 4 MG Tablet PO SCH (08:39)
[2018-06-14] MEDS: Calcium/Vitamin D 250/125 MG Tablet PO SCH ×3 (08:39→19:18)
[2018-06-14] MEDS: Metoprolol Tartrate 100 MG Tablet PO SCH ×2 (08:39→20:21)
[2018-06-14] MEDS: Senna/Docusate Sodium 8.6/50 MG Tablet PO SCH ×2 (08:39→20:21)
[2018-06-14] MEDS: Lisinopril 5 MG Tablet PO SCH (08:40)
--- NOTE | 2018-06-14 08:46 | P.PNOP ---
Subjective Interval history: pt having continued memory issues only complaint this morning is continued incontinence which she has long history Physical Exam Vital signs: Vital Signs 06/13/18 12:00 06/13/18 12:22 06/13/18 16:00 Temperature 99.2 F 98.7 F Pulse Rate 63 71 Respiratory Rate 17 18 Blood Pressure 166/77 H 148/83 H Pulse Oximetry 95 94 L 93 L 06/13/18 20:00 06/13/18 21:50 06/14/18 00:00 Temperature 100.4 F H 98.8 F Pulse Rate 88 89 Respiratory Rate 20 18 14 Blood Pressure 182/79 H 148/71 H Pulse Oximetry 96 94 L 06/14/18 00:45 06/14/18 02:22 06/14/18 02:45 Temperature Pulse Rate Respiratory Rate 17 18 18 Blood Pressure Pulse Oximetry Intake & Output 06/13/18 06/14/18 06/14/18 18:59 06:59 18:59 Intake Total 3120 / 3120 720 / 720 Balance 3120 / 3120 720 / 720 Intake: IV 2120 / 2120 LR 1000 mL Inj 1,000 ML @ 30 2000 / 2000 mls/hr IV.CONT .Q24H [facility] Rx#: [id number] Ancef Inj 2,000 MG In NS Inj 120 / 120 100 ML @ 240 mls/hr IV.SIG Q8H [facility] Rx#:[id number] Oral 1000 / 1000 720 / 720 Other: # Voids 3 # Incontinent Voids 3 Date of Last Bowel Movement 06/10/18 06/12/18 Narrative: also seen and examined by Dr. Gordo Drake right arm in sling +NVI Results - Labs CBC & Chem 7: 06/14/18 05:02 06/11/18 13:00 Laboratory Results - last 24 hr 06/13/18 06/13/18 06/14/18 16:54 19:34 05:02 WBC 9.7 RBC 3.76 L Hgb 11.9 Hct 34.8 L MCV 92.5 MCH 31.7 MCHC 34.3 RDW 13.0 Plt Count 147 L MPV 9.5 POC Glucose 98 169 H Assessment and Plan - Problem List (1) Fracture, humerus Code(s): S42.309A - Unspecified fracture of shaft of humerus, unspecified arm, initial encounter for closed fracture Status: Acute Qualifiers: Encounter type: initial encounter Fracture type: closed Fracture morphology: spiral Fracture alignment: displaced Laterality: right - Assessment and Plan POD # 2 s/p ORIF right humerus Physical therapy: Pendulum exercises right arm, sling Follow-up with Dr. Feliciano in 2 weeks RICARDA Gilliam Case management: rehab facility when authorization received, possible discharge today and if not, Friday, orthopedically stable
[2018-06-14] MEDS: Insulin NovoLOG Aspart Correctional Sugar Inj SQ SCH ×4 (09:50→20:21)
--- NOTE | 2018-06-14 14:00 | P.PNIM ---
Subjective Interval history: This is a pleasant 73-year-old white female with significant past medical history of fibromyalgia, osteoarthritis, frequent falls, type 2 diabetes, sleep apnea, urinary incontinence, prior right knee replacement, s/p C4/C5 interbody fusion with cervical plate placement and removal of the C5-C7 cervical plate 2016, myelopathy. Patient indicates that she was walking in her kitchen when she missed a step and tripped and fell face forward hitting her right knee and right arm and shoulder. Patient denies any loss of consciousness, no neck pain. She laid on the floor and her significant other came to assist her and called EMS. Patient was evaluated in the emergency room, x-rays were obtained including a CT of the chest and CT of the head were negative. X-ray of the humerus shows a spiral oblique fracture. She was placed in a splint, orthopedic surgeon Dr. Cooper was called and recommended n.p.o. after midnight for surgery in the morning. Patient was given Dilaudid in the emergency room and she is comfortable at this time. Denies any numbness or tingling on the right hand. Laboratory workup completed essentially unremarkable except for mild leukocytosis. Patient indicates she has history of frequent falls, despite having surgery back in 2016. She sees pain management and is on hydrocodone at home. Uses a walker occasionally for ambulation. Patient indicates that prior to fall she had been doing well, no chest pain, has some shortness of breath with activity but she is very sedentary. Denies any fever, no chills. No changes in bowel movement, she has urinary incontinence. Indicates that approximately a month ago Dr. Stoll did baseline echo and stress test and all were normal. Denies hx of CAD. Patient is admitted for further evaluation and treatment. 06-12 follow up for humerus fracture, s/p fall: Patient is awake alert oriented 3. Indicates she had a rough night, could not get comfortable. Pain is well controlled. Going for surgery today. Denies any chest pain, no shortness of breath. No fever. 06-13 follow up for humerus fracture, s/p fall: Patient is awake alert oriented 3. s/p ORIF right humerus 06/12, sitting up in chair, took 2 nurses to get out of bed. Sleepy, awakes to voice, oriented x3. Wants to go home not rehab. No cp , no sob, Pain stable. No fever. BP elevated up to 180s last night. 06-14 STILL COMPLAINING OF PAIN NOT BEING CONTROLLED WILL ADJUST TO PO PAIN MEDS AM LABS PT AND OT WILL NEED SNF Physical Exam Vital signs: Vital Signs 06/13/18 16:00 06/13/18 20:00 06/13/18 21:50 Temperature 98.7 F 100.4 F H Pulse Rate 71 88 Respiratory Rate 18 20 18 Blood Pressure 148/83 H 182/79 H Pulse Oximetry 93 L 96 06/14/18 00:00 06/14/18 00:45 06/14/18 02:22 Temperature 98.8 F Pulse Rate 89 Respiratory Rate 14 17 18 Blood Pressure 148/71 H Pulse Oximetry 94 L 06/14/18 02:45 06/14/18 08:00 06/14/18 10:33 Temperature 98.2 F Pulse Rate 79 Respiratory Rate 18 18 Blood Pressure 149/109 H Pulse Oximetry 94 L 94 L 06/14/18 12:00 Temperature 97.5 F L Pulse Rate 117 H Respiratory Rate 18 Blood Pressure 132/65 Pulse Oximetry 96 Intake & Output 06/13/18 06/14/18 06/14/18 18:59 06:59 18:59 Intake Total 3120 / 3120 720 / 720 Balance 3120 / 3120 720 / 720 Intake: IV 2120 / 2120 LR 1000 mL Inj 1,000 ML @ 30 2000 / 2000 mls/hr IV.CONT .Q24H ONE Rx#: [id number] Ancef Inj 2,000 MG In NS Inj 120 / 120 100 ML @ 240 mls/hr IV.SIG Q8H [facility] Rx#:[id number] Oral 1000 / 1000 720 / 720 Other: # Voids 3 # Incontinent Voids 3 Date of Last Bowel Movement 06/10/18 06/12/18 06/12/18 Narrative: GENERAL: 73-year-old obese female, no apparent distress. SKIN: Midforehead hematoma noted, left periorbital bruising, mild bruising noted over right eyelid. Abrasion over right knee. Bruising noted top lip. HEAD: Atraumatic. Normocephalic. EYES: Pupils equal and round. No scleral icterus. No injection or drainage. ENT: No nasal bleeding or discharge. Mucous membranes pink and moist. NECK: Trachea midline. No JVD. CARDIOVASCULAR: Regular rate and rhythm. RESPIRATORY: No accessory muscle use. Clear to auscultation. Breath sounds equal bilaterally. GASTROINTESTINAL: Abdomen soft, non-tender, nondistended. Hepatic and splenic margins not palpable. MUSCULOSKELETAL: Right upper extremity with dressing D/I, has sling. Intact sensation to right fingertips, right radial pulse 2+. Right FA swelling. Capillary refill less than 3 seconds. No other joint abnormality. NEUROLOGICAL: Sleepy, Awakes to voice, oriented 3. No obvious cranial nerve deficits. Normal speech. PSYCHIATRIC: Appropriate mood and affect; insight and judgment normal. Results - Labs CBC & Chem 7: 06/14/18 05:02 06/11/18 13:00 Laboratory Results - last 24 hr 06/13/18 06/13/18 06/14/18 16:54 19:34 05:02 WBC RBC Hgb Hct MCV MCH MCHC RDW Plt Count MPV POC Glucose 98 169 H Hemoglobin A1c 8.0 H 06/14/18 06/14/18 06/14/18 05:02 08:56 11:46 WBC 9.7 RBC 3.76 L Hgb 11.9 Hct 34.8 L MCV 92.5 MCH 31.7 MCHC 34.3 RDW 13.0 Plt Count 147 L MPV 9.5 POC Glucose 186 H 184 H Hemoglobin A1c - Imaging ITS Impressions Cervical Spine CT 06/11/18 12:51 CONCLUSION: 1. No acute fracture or prevertebral soft tissue swelling. 2. Moderate spinal stenosis and bilateral foraminal narrowing at C5-6. 3. Mild spinal stenosis and moderate left neuroforaminal narrowing at C4-C5. 4. Severe left neuroforaminal narrowing and moderate right neuroforaminal narrowing without spinal stenosis at C3-4. 5. Grade I anterolisthesis of C7 in relation to T1. 6. Moderate left neuroforaminal narrowing at C2-3 and C6-7. 7. Straightening of the normal cervical lordosis. Chest X-Ray 06/11/18 12:51 CONCLUSION: Negative examination. Face CT 06/11/18 12:51 CONCLUSION: 1. Left frontal subcutaneous hematoma. No evidence of underlying facial fracture or significant sinus disease Head CT 06/11/18 12:51 CONCLUSION: 1. Negative CT Head non contrast. Mild atrophy . Pelvis X-Ray 06/11/18 12:51 CONCLUSION: Negative examination. Chest CT 06/11/18 12:53 CONCLUSION: 1. Negative CT Chest non contrast. Shoulder X-Ray 06/11/18 12:53 CONCLUSION: Oblique displaced humeral shaft fracture as described above. Wrist X-Ray 06/11/18 14:47 CONCLUSION: 1. 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 2. No acute fracture, dislocation or soft tissue swelling. Humerus X-Ray 06/12/18 00:00 CONCLUSION: Anatomic alignment. - Procedures - Preoperative Diagnosis (1) Closed right humeral fracture Date of procedure: 06/12/18 Procedure: Open reduction internal fixation right humerus shaft fracture Anesthesia: GETA Surgeon: David Feliciano MD Liner Installer: JAZMIN Armas PA-C The surgical procedure was assisted by my physician assistant community manager. My P.A. presence was necessary throughout this case for the manipulation and positioning of the surgical extremity. My P.A. was assisting me throughout the duration of this procedure. The skill set of a physician assistant community manager was medically necessary to complete this procedure. During the surgical case the surgical resident was working at the back table and the physician assistant community manager was directly assisting me. Operation and Findings: Implants used: Synthes Plan of activity: Nonweightbearing, passive range of motion right arm Details of procedure: Patient was seen and evaluated preoperatively. Treatment options were discussed regarding right humerus fracture including surgical and nonsurgical treatments. After detailed discussion of risk and benefits of procedure patient wishes to proceed with surgery. Risks of surgery include bleeding, infection, nonunion, malunion, painful hardware, loss of motion of shoulder and elbow, weakness and numbness of arm, as well as medical competitions including blood clots stroke and . Patient was brought to operating room and placed on the OR table. GETA was administered by anesthesiologist. Operative arm and shoulder were prepped with alcohol followed by Hibiclens and draped usual sterile fashion. Timeout procedure was performed. IV antibiotics were given prior to incision. A standard anterior approach was utilized. Subcutaneous tissues was dissected with Bovie. Cephalic vein was identified and protected. Proximally the deltopectoral interval was opened. Distally the brachialis was split. The fracture was identified. There was an area of comminution. Soft tissue was removed from the fracture site. Fracture site was cleaned with curettes. At this point the fracture was reduced using fracture tenaculums. Multiplanar fluoroscopy confirmed excellent of fracture. 3.5 cortical lag screws were used to compress the fracture. A Synthes 3.5 plate was contoured to fit the humerus. Plate was provisionally held the bone with K wires. 3.5 cortical screws were placed on each side of the fracture. The screws were placed to add compression to fracture. Multiple screws were placed in each side of the fracture. All screws were predrilled and premeasured for appropriate length. Final fluoroscopy revealed excellent alignment of fracture with well-placed hardware. Incision was thoroughly irrigated. Fascia was closed with #1 Vicryl , subcutaneous tissues closed with 3-0 Vicryl, and skin was closed with matt. Sterile dressings were applied. Needle and sponge counts were correct. Patient was placed into a sling, and then transferred to recovery room in stable condition Documented By: David Feliciano MD 06/12/18 1020 Assessment and Plan - Assessment (1) Fall Code(s): W19.XXXA - Unspecified fall, initial encounter Status: Acute (2) Fracture, humerus Code(s): S42.309A - Unspecified fracture of shaft of humerus, unspecified arm, initial encounter for closed fracture Status: Acute (3) Hematoma of frontal scalp Code(s): S00.03XA - Contusion of scalp, initial encounter Status: Acute (4) Diabetes 1.5, managed as type 2 Code(s): E10.9 - Type 1 diabetes mellitus without complications Status: Chronic (5) Chronic back pain Code(s): M54.9 - Dorsalgia, unspecified; G89.29 - Other chronic pain Status: Chronic (6) Fibromyalgia Code(s): M79.7 - Fibromyalgia Status: Chronic (7) STARR (obstructive sleep apnea) Code(s): G47.33 - Obstructive sleep apnea (adult) (pediatric) Status: Chronic (8) Hypertension Code(s): I10 - Essential (primary) hypertension Status: Chronic - Plan 73-year-old female with history of chronic pain, fibromyalgia, prior anterior cervical fusion, frequent falls, hypertension. Patient tripped and fell face forward hitting her forehead, right arm and shoulder. No LOC. Imaging studies were completed, CT of the head and chest negative. She was found with WITH midhumerus spiral/oblique fracture. She was placed in a splint and case was discussed with orthopedic surgeon. Status post mechanical fall, right mid humeral spiral oblique fracture. s/p ORIF right humerus 06/12 POD #2 -Appreciate orthopedic input -post op care Continue with Canadensis PRN and Morphine. DC Dilaudid -PT/OT, recommendations noted. PT recommends SNF. Pt. unsteady unable to use walker. -CBC in am Type 2 diabetes BGM elevated, up to 300 Accu-Cheks before meals and at bedtime with insulin therapy as needed, inc. to medium scale -Resume Glimepiride Diabetic diet -Hgb A1C in am History of frequent falls, prior history of cervical neck surgery. -Physical therapy Chronic pain, history of fibromyalgia and back pain. -Continue with pain management INCREASE PAIN MED Obstructive sleep apnea, uses CPAP at home Patient will have significant other to bring home CPAP for use. Hypertension, elevated up to 180s Continue metoprolol. -Add Lisinopril 5 mg po daily -Vasotec PRN Enc. IS use SCDs for DVT prophylaxis D/W pt, wants home but not safe for dc. Significant other can help some but not around the clock. She agrees with SNF CM consult for SNF placement. Code Status: FULL CODE Discussed Condition With: RN AND PT AND CM Discharge Planning: PENDING SNF (1) Fall Qualifiers: Encounter type: initial encounter Qualified Code(s): W19.XXXA - Unspecified fall, initial encounter (2) Fracture, humerus Qualifiers: Encounter type: initial encounter Fracture type: closed Fracture morphology : spiral Fracture alignment: displaced Laterality: right (3) Hematoma of frontal scalp Qualifiers: Encounter type: initial encounter Qualified Code(s): S00.03XA - Contusion of scalp, initial encounter (5) Chronic back pain Qualifiers: Back pain location: low back pain Back pain laterality: unspecified Sciatica presence: without sciatica Qualified Code(s): M54.5 - Low back pain; G89.29 - Other chronic pain (8) Hypertension Qualifiers: Hypertension type: essential hypertension Qualified Code(s): I10 - Essential (primary) hypertension
[2018-06-14] MEDS ORDERED: Morphine Inj 4 MG/ML Vial IV.PUSH PRN ×3 (14:20)
[2018-06-14] MEDS ORDERED: oxyCODONE/Acetaminophen 10/325 Tablet PO PRN (14:20)
[2018-06-14] MEDS ORDERED: Naloxone Inj 0.4 MG/ML Vial IV.PUSH PRN (14:20)
--- NOTE | 2018-06-15 06:51 | P.PNOP ---
Subjective Interval history: Resting comfortably in bed. States that she is had difficulty ambulating due to weakness and imbalance Physical Exam Vital signs: Vital Signs 06/14/18 08:00 06/14/18 10:33 06/14/18 12:00 Temperature 98.2 F 97.5 F L Pulse Rate 79 117 H Respiratory Rate 18 18 Blood Pressure 149/109 H 132/65 Pulse Oximetry 94 L 94 L 96 06/14/18 16:00 06/14/18 20:00 06/14/18 20:50 Temperature 97.2 F L 98.2 F Pulse Rate 112 H 78 Respiratory Rate 17 18 18 Blood Pressure 166/79 H 168/83 H Pulse Oximetry 96 97 06/14/18 21:30 06/15/18 00:00 06/15/18 00:20 Temperature 98.7 F Pulse Rate 109 H Respiratory Rate 19 18 Blood Pressure 151/93 H Pulse Oximetry 93 L 93 L 06/15/18 05:35 Temperature Pulse Rate Respiratory Rate 17 Blood Pressure Pulse Oximetry Intake & Output 06/14/18 06/14/18 06/15/18 06:59 18:59 06:59 Intake Total 720 / 720 1100 / 1100 Balance 720 / 720 1100 / 1100 Intake: Oral 720 / 720 1100 / 1100 Other: # Voids 4 # Incontinent Voids 3 Date of Last Bowel Movement 06/12/18 06/12/18 06/12/18 Narrative: Right upper extremity: Incisions clean dry and intact with matt in position. New dressings were applied. Distally intact sensation with full extension flexion of all fingers Results - Labs CBC & Chem 7: 06/14/18 05:02 06/11/18 13:00 Laboratory Results - last 24 hr 06/14/18 06/14/18 06/14/18 05:02 08:56 11:46 POC Glucose 186 H 184 H Hemoglobin A1c 8.0 H 06/14/18 19:46 POC Glucose 234 H Hemoglobin A1c - Procedures - Preoperative Diagnosis (1) Closed right humeral fracture Date of procedure: 06/12/18 Procedure: Open reduction internal fixation right humerus shaft fracture Anesthesia: GETA Surgeon: David Soto MD Conduit Mechanic: JAZMIN Armas PA-C The surgical procedure was assisted by my physician anesthesiology physician assistant. My P.A. presence was necessary throughout this case for the manipulation and positioning of the surgical extremity. My P.A. was assisting me throughout the duration of this procedure. The skill set of a physician anesthesiology physician assistant was medically necessary to complete this procedure. During the surgical case the operating room surgical technologist was working at the back table and the physician anesthesiology physician assistant was directly assisting me. Operation and Findings: Implants used: Synthes Plan of activity: Nonweightbearing, passive range of motion right arm Details of procedure: Patient was seen and evaluated preoperatively. Treatment options were discussed regarding right humerus fracture including surgical and nonsurgical treatments. After detailed discussion of risk and benefits of procedure patient wishes to proceed with surgery. Risks of surgery include bleeding, infection, nonunion, malunion, painful hardware, loss of motion of shoulder and elbow, weakness and numbness of arm, as well as medical competitions including blood clots stroke and . Patient was brought to operating room and placed on the OR table. GETA was administered by anesthesiologist. Operative arm and shoulder were prepped with alcohol followed by Hibiclens and draped usual sterile fashion. Timeout procedure was performed. IV antibiotics were given prior to incision. A standard anterior approach was utilized. Subcutaneous tissues was dissected with Bovie. Cephalic vein was identified and protected. Proximally the deltopectoral interval was opened. Distally the brachialis was split. The fracture was identified. There was an area of comminution. Soft tissue was removed from the fracture site. Fracture site was cleaned with curettes. At this point the fracture was reduced using fracture tenaculums. Multiplanar fluoroscopy confirmed excellent of fracture. 3.5 cortical lag screws were used to compress the fracture. A Synthes 3.5 plate was contoured to fit the humerus. Plate was provisionally held the bone with K wires. 3.5 cortical screws were placed on each side of the fracture. The screws were placed to add compression to fracture. Multiple screws were placed in each side of the fracture. All screws were predrilled and premeasured for appropriate length. Final fluoroscopy revealed excellent alignment of fracture with well-placed hardware. Incision was thoroughly irrigated. Fascia was closed with #1 Vicryl , subcutaneous tissues closed with 3-0 Vicryl, and skin was closed with matt. Sterile dressings were applied. Needle and sponge counts were correct. Patient was placed into a sling, and then transferred to recovery room in stable condition Documented By: David Soto MD 06/12/18 1020 Assessment and Plan - Problem List (1) Fracture, humerus Code(s): S42.309A - Unspecified fracture of shaft of humerus, unspecified arm, initial encounter for closed fracture Status: Acute Qualifiers: Encounter type: initial encounter Fracture type: closed Fracture morphology: spiral Fracture alignment: displaced Laterality: right - Assessment and Plan POD # 3 s/p ORIF right humerus Physical therapy: Pendulum exercises right arm, sling Follow-up with Dr. Soto in 2 weeks SCDs, RICARDA velasquez Follow-up with Dr. Soto or PA in 2 weeks discharge to rehab when bed available
[2018-06-15 07:15] LABS: Baso # (Auto) 0.1 th/mm3 (0.0-0.2); Baso % (Auto) 0.7 % (0.0-2.0); Eos # (Auto) 0.2 th/mm3 (0.0-0.4); Eos % (Auto) 2.3 % (0.0-4.0); Hematocrit 40.6 % (35.0-46.0); Hemoglobin 13.6 gm/dL (11.6-15.3); Lymph # (Auto) 2.3 th/mm3 (1.0-4.8); Lymph % (Auto) 21.7 % (9.0-44.0); Mean Corpuscular HGB Conc 33.5 % (32.0-36.0); Mean Corpuscular Hemoglobin 31.1 pg (27.0-34.0); Mean Corpuscular Volume 92.8 fL (80.0-100.0); Mean Platelet Volume 9.8 fL (7.0-11.0); Mono # (Auto) 0.8 th/mm3 (0.0-0.9); Mono % (Auto) 7.2 % (0.0-8.0); Neut # (Auto) 7.2 th/mm3 (1.8-7.7); Neut % (Auto) 68.1 % (16.0-70.0); Platelet Count 163 th/mm3 (150-450); Red Blood Count 4.37 mil/mm3 (4.00-5.30); Red Cell Distribution Width 13.2 % (11.6-17.2); White Blood Count 10.5 th/mm3 (4.0-11.0)
[2018-06-15 07:41] LABS: Alanine Aminotransferase 23 U/L (10-53); Albumin 2.6 g/dL (3.4-5.0); Anion Gap 9 meq/L (5-15); Aspartate Aminotransferase 18 U/L (15-37); Blood Urea Nitrogen 14 mg/dL (7-18); Calcium 8.6 mg/dL (8.5-10.1); Chloride 103 meq/L (98-107); Glomerular Filtration Rate Greater Than 89 mL/min (>89); Glucose,Random 192 mg/dL (74-106); Magnesium 1.9 mg/dL (1.5-2.5); Phosphorus 2.9 mg/dL (2.5-4.9); Potassium 3.4 meq/L (3.5-5.1); Sodium 143 meq/L (136-145)
[2018-06-15 07:49] LABS: Alkaline Phosphatase 117 U/L (45-117); Free T4 (Free Thyroxine) 1.37 ng/dL (0.76-1.46); Total Protein 6.8 g/dL (6.4-8.2)
[2018-06-15] MEDS: Glimepiride 4 MG Tablet PO SCH (08:34)
[2018-06-15] MEDS: Insulin NovoLOG Aspart Correctional Sugar Inj SQ SCH ×4 (08:34→20:59)
[2018-06-15] MEDS: Lisinopril 5 MG Tablet PO SCH (08:35)
[2018-06-15] MEDS: Senna/Docusate Sodium 8.6/50 MG Tablet PO SCH ×2 (08:35→20:58)
[2018-06-15] MEDS: Calcium/Vitamin D 250/125 MG Tablet PO SCH ×3 (08:35→17:26)
[2018-06-15] MEDS: Metoprolol Tartrate 100 MG Tablet PO SCH ×2 (08:35→20:58)
--- NOTE | 2018-06-15 14:39 | P.PNIM ---
Subjective Interval history: This is a pleasant 73-year-old white female with significant past medical history of fibromyalgia, osteoarthritis, frequent falls, type 2 diabetes, sleep apnea, urinary incontinence, prior right knee replacement, s/p C4/C5 interbody fusion with cervical plate placement and removal of the C5-C7 cervical plate 2016, myelopathy. Patient indicates that she was walking in her kitchen when she missed a step and tripped and fell face forward hitting her right knee and right arm and shoulder. Patient denies any loss of consciousness, no neck pain. She laid on the floor and her significant other came to assist her and called EMS. Patient was evaluated in the emergency room, x-rays were obtained including a CT of the chest and CT of the head were negative. X-ray of the humerus shows a spiral oblique fracture. She was placed in a splint, orthopedic surgeon Dr. Cooper was called and recommended n.p.o. after midnight for surgery in the morning. Patient was given Dilaudid in the emergency room and she is comfortable at this time. Denies any numbness or tingling on the right hand. Laboratory workup completed essentially unremarkable except for mild leukocytosis. Patient indicates she has history of frequent falls, despite having surgery back in 2016. She sees pain management and is on hydrocodone at home. Uses a walker occasionally for ambulation. Patient indicates that prior to fall she had been doing well, no chest pain, has some shortness of breath with activity but she is very sedentary. Denies any fever, no chills. No changes in bowel movement, she has urinary incontinence. Indicates that approximately a month ago Dr. Stoll did baseline echo and stress test and all were normal. Denies hx of CAD. Patient is admitted for further evaluation and treatment. 06-12 follow up for humerus fracture, s/p fall: Patient is awake alert oriented 3. Indicates she had a rough night, could not get comfortable. Pain is well controlled. Going for surgery today. Denies any chest pain, no shortness of breath. No fever. 06-13 follow up for humerus fracture, s/p fall: Patient is awake alert oriented 3. s/p ORIF right humerus 06/12, sitting up in chair, took 2 nurses to get out of bed. Sleepy, awakes to voice, oriented x3. Wants to go home not rehab. No cp , no sob, Pain stable. No fever. BP elevated up to 180s last night. 06-14 STILL COMPLAINING OF PAIN NOT BEING CONTROLLED WILL ADJUST TO PO PAIN MEDS AM LABS PT AND OT WILL NEED SNF 06-15 NOT MOBILE NEEDS SNF DC TO SNF WHEN BED AVAILABLE DW RN AND PT AND CM Physical Exam Vital signs: Vital Signs 06/14/18 16:00 06/14/18 20:00 06/14/18 20:50 Temperature 97.2 F L 98.2 F Pulse Rate 112 H 78 Respiratory Rate 17 18 18 Blood Pressure 166/79 H 168/83 H Pulse Oximetry 96 97 06/14/18 21:30 06/15/18 00:00 06/15/18 00:20 Temperature 98.7 F Pulse Rate 109 H Respiratory Rate 19 18 Blood Pressure 151/93 H Pulse Oximetry 93 L 93 L 06/15/18 05:35 06/15/18 07:05 06/15/18 08:00 Temperature 98.1 F Pulse Rate 123 H Respiratory Rate 17 18 16 Blood Pressure 178/96 H Pulse Oximetry 91 L 06/15/18 09:05 Temperature Pulse Rate Respiratory Rate Blood Pressure Pulse Oximetry 93 L Intake & Output 06/14/18 06/15/18 06/15/18 18:59 06:59 18:59 Intake Total 1100 / 1100 Balance 1100 / 1100 Intake: Oral 1100 / 1100 Other: # Voids 4 Date of Last Bowel Movement 06/12/18 06/12/18 06/12/18 Narrative: GENERAL: 73-year-old obese female, no apparent distress. SKIN: Midforehead hematoma noted, left periorbital bruising, mild bruising noted over right eyelid. Abrasion over right knee. Bruising noted top lip. HEAD: Atraumatic. Normocephalic. EYES: Pupils equal and round. No scleral icterus. No injection or drainage. ENT: No nasal bleeding or discharge. Mucous membranes pink and moist. NECK: Trachea midline. No JVD. CARDIOVASCULAR: Regular rate and rhythm. RESPIRATORY: No accessory muscle use. Clear to auscultation. Breath sounds equal bilaterally. GASTROINTESTINAL: Abdomen soft, non-tender, nondistended. Hepatic and splenic margins not palpable. MUSCULOSKELETAL: Right upper extremity with dressing D/I, has sling. Intact sensation to right fingertips, right radial pulse 2+. Right FA swelling. Capillary refill less than 3 seconds. No other joint abnormality. NEUROLOGICAL: Sleepy, Awakes to voice, oriented 3. No obvious cranial nerve deficits. Normal speech. PSYCHIATRIC: Appropriate mood and affect; insight and judgment normal. Results - Labs CBC & Chem 7: 06/15/18 06:40 06/15/18 06:40 Laboratory Results - last 24 hr 06/14/18 06/15/18 06/15/18 19:46 06:40 06:40 WBC 10.5 RBC 4.37 Hgb 13.6 Hct 40.6 MCV 92.8 MCH 31.1 MCHC 33.5 RDW 13.2 Plt Count 163 MPV 9.8 Neut % (Auto) 68.1 Lymph % (Auto) 21.7 [place] % (Auto) 7.2 Eos % (Auto) 2.3 Baso % (Auto) 0.7 Neut # (Auto) 7.2 Lymph # (Auto) 2.3 [place] # (Auto) 0.8 Eos # (Auto) 0.2 Baso # (Auto) 0.1 WBC Differential . Differential Comment Auto diff final Sodium 143 Potassium 3.4 L Chloride 103 Carbon Dioxide 31.0 Anion Gap 9 BUN 14 Creatinine 0.59 Estimated GFR Greater than 89 POC Glucose 234 H Random Glucose 192 H Calcium 8.6 Phosphorus 2.9 Magnesium 1.9 Total Bilirubin 0.4 AST 18 ALT 23 Alkaline Phosphatase 117 Total Protein 6.8 Albumin 2.6 L TSH 2.520 Free T4 1.37 06/15/18 06/15/18 07:04 12:43 WBC RBC Hgb Hct MCV MCH MCHC RDW Plt Count MPV Neut % (Auto) Lymph % (Auto) [place] % (Auto) Eos % (Auto) Baso % (Auto) Neut # (Auto) Lymph # (Auto) [place] # (Auto) Eos # (Auto) Baso # (Auto) WBC Differential Differential Comment Sodium Potassium Chloride Carbon Dioxide Anion Gap BUN Creatinine Estimated GFR POC Glucose 190 H 286 H Random Glucose Calcium Phosphorus Magnesium Total Bilirubin AST ALT Alkaline Phosphatase Total Protein Albumin TSH Free T4 - Imaging ITS Impressions Cervical Spine CT 06/11/18 12:51 CONCLUSION: 1. No acute fracture or prevertebral soft tissue swelling. 2. Moderate spinal stenosis and bilateral foraminal narrowing at C5-6. 3. Mild spinal stenosis and moderate left neuroforaminal narrowing at C4-C5. 4. Severe left neuroforaminal narrowing and moderate right neuroforaminal narrowing without spinal stenosis at C3-4. 5. Grade I anterolisthesis of C7 in relation to T1. 6. Moderate left neuroforaminal narrowing at C2-3 and C6-7. 7. Straightening of the normal cervical lordosis. Chest X-Ray 06/11/18 12:51 CONCLUSION: Negative examination. Face CT 06/11/18 12:51 CONCLUSION: 1. Left frontal subcutaneous hematoma. No evidence of underlying facial fracture or significant sinus disease Head CT 06/11/18 12:51 CONCLUSION: 1. Negative CT Head non contrast. Mild atrophy . Pelvis X-Ray 06/11/18 12:51 CONCLUSION: Negative examination. Chest CT 06/11/18 12:53 CONCLUSION: 1. Negative CT Chest non contrast. Shoulder X-Ray 06/11/18 12:53 CONCLUSION: Oblique displaced humeral shaft fracture as described above. Wrist X-Ray 06/11/18 14:47 CONCLUSION: 1. 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 2. No acute fracture, dislocation or soft tissue swelling. Humerus X-Ray 06/12/18 00:00 CONCLUSION: Anatomic alignment. - Procedures - Preoperative Diagnosis (1) Closed right humeral fracture Date of procedure: 06/12/18 Procedure: Open reduction internal fixation right humerus shaft fracture Anesthesia: GETA Surgeon: David Feliciano MD [facility] Director: JAZMIN Armas PA-C The surgical procedure was assisted by my physician housekeeper and laundry assistant. My P.A. presence was necessary throughout this case for the manipulation and positioning of the surgical extremity. My P.A. was assisting me throughout the duration of this procedure. The skill set of a physician housekeeper and laundry assistant was medically necessary to complete this procedure. During the surgical case the landfill gas technician was working at the back table and the physician housekeeper and laundry assistant was directly assisting me. Operation and Findings: Implants used: Synthes Plan of activity: Nonweightbearing, passive range of motion right arm Details of procedure: Patient was seen and evaluated preoperatively. Treatment options were discussed regarding right humerus fracture including surgical and nonsurgical treatments. After detailed discussion of risk and benefits of procedure patient wishes to proceed with surgery. Risks of surgery include bleeding, infection, nonunion, malunion, painful hardware, loss of motion of shoulder and elbow, weakness and numbness of arm, as well as medical competitions including blood clots stroke and . Patient was brought to operating room and placed on the OR table. GETA was administered by anesthesiologist. Operative arm and shoulder were prepped with alcohol followed by Hibiclens and draped usual sterile fashion. Timeout procedure was performed. IV antibiotics were given prior to incision. A standard anterior approach was utilized. Subcutaneous tissues was dissected with Bovie. Cephalic vein was identified and protected. Proximally the deltopectoral interval was opened. Distally the brachialis was split. The fracture was identified. There was an area of comminution. Soft tissue was removed from the fracture site. Fracture site was cleaned with curettes. At this point the fracture was reduced using fracture tenaculums. Multiplanar fluoroscopy confirmed excellent of fracture. 3.5 cortical lag screws were used to compress the fracture. A Synthes 3.5 plate was contoured to fit the humerus. Plate was provisionally held the bone with K wires. 3.5 cortical screws were placed on each side of the fracture. The screws were placed to add compression to fracture. Multiple screws were placed in each side of the fracture. All screws were predrilled and premeasured for appropriate length. Final fluoroscopy revealed excellent alignment of fracture with well-placed hardware. Incision was thoroughly irrigated. Fascia was closed with #1 Vicryl , subcutaneous tissues closed with 3-0 Vicryl, and skin was closed with matt. Sterile dressings were applied. Needle and sponge counts were correct. Patient was placed into a sling, and then transferred to recovery room in stable condition Documented By: David Feliciano MD 06/12/18 1020 Assessment and Plan - Assessment (1) Fall Code(s): W19.XXXA - Unspecified fall, initial encounter Status: Acute (2) Fracture, humerus Code(s): S42.309A - Unspecified fracture of shaft of humerus, unspecified arm, initial encounter for closed fracture Status: Acute (3) Hematoma of frontal scalp Code(s): S00.03XA - Contusion of scalp, initial encounter Status: Acute (4) Diabetes 1.5, managed as type 2 Code(s): E10.9 - Type 1 diabetes mellitus without complications Status: Chronic (5) Chronic back pain Code(s): M54.9 - Dorsalgia, unspecified; G89.29 - Other chronic pain Status: Chronic (6) Fibromyalgia Code(s): M79.7 - Fibromyalgia Status: Chronic (7) STARR (obstructive sleep apnea) Code(s): G47.33 - Obstructive sleep apnea (adult) (pediatric) Status: Chronic (8) Hypertension Code(s): I10 - Essential (primary) hypertension Status: Chronic - Plan 73-year-old female with history of chronic pain, fibromyalgia, prior anterior cervical fusion, frequent falls, hypertension. Patient tripped and fell face forward hitting her forehead, right arm and shoulder. No LOC. Imaging studies were completed, CT of the head and chest negative. She was found with WITH midhumerus spiral/oblique fracture. She was placed in a splint and case was discussed with orthopedic surgeon. Status post mechanical fall, right mid humeral spiral oblique fracture. s/p ORIF right humerus 06/12 POD #3 -Appreciate orthopedic input -post op care Continue with [place] PRN and Morphine. DC Dilaudid -PT/OT, recommendations noted. PT recommends SNF. Pt. unsteady unable to use walker. -CBC in am Type 2 diabetes BGM elevated, up to 300 Accu-Cheks before meals and at bedtime with insulin therapy as needed, inc. to medium scale -Resume Glimepiride Diabetic diet - History of frequent falls, prior history of cervical neck surgery. -Physical therapy Chronic pain, history of fibromyalgia and back pain. -Continue with pain management INCREASE PAIN MED Obstructive sleep apnea, uses CPAP at home Patient will have significant other to bring home CPAP for use. Hypertension, elevated up to 180s Continue metoprolol. -Add Lisinopril 5 mg po daily -Vasotec PRN Enc. IS use SCDs for DVT prophylaxis D/W pt, wants home but not safe for dc. Significant other can help some but not around the clock. She agrees with SNF CM consult for SNF placement. Code Status: FULL CODE Discussed Condition With: RN AND PT AND CM Discharge Planning: PENDING SNF (1) Fall Qualifiers: Encounter type: initial encounter Qualified Code(s): W19.XXXA - Unspecified fall, initial encounter (2) Fracture, humerus Qualifiers: Encounter type: initial encounter Fracture type: closed Fracture morphology : spiral Fracture alignment: displaced Laterality: right (3) Hematoma of frontal scalp Qualifiers: Encounter type: initial encounter Qualified Code(s): S00.03XA - Contusion of scalp, initial encounter (5) Chronic back pain Qualifiers: Back pain location: low back pain Back pain laterality: unspecified Sciatica presence: without sciatica Qualified Code(s): M54.5 - Low back pain; G89.29 - Other chronic pain (8) Hypertension Qualifiers: Hypertension type: essential hypertension Qualified Code(s): I10 - Essential (primary) hypertension
--- NOTE | 2018-06-15 14:46 | P.DS ---
Date of admission: 06/11/18 15:37 Primary care physician: MARIA VICTORIA [facility] [place] Attending physician on discharge: Gerardo Matthews Anticipated date of discharge: 06/15/18 Brief History from admission: This is a pleasant 73-year-old white female with significant past medical history of fibromyalgia, osteoarthritis, frequent falls, type 2 diabetes, sleep apnea, urinary incontinence, prior right knee replacement, s/p C4/C5 interbody fusion with cervical plate placement and removal of the C5-C7 cervical plate 2016, myelopathy. Patient indicates that she was walking in her kitchen when she missed a step and tripped and fell face forward hitting her right knee and right arm and shoulder. Patient denies any loss of consciousness, no neck pain. She laid on the floor and her significant other came to assist her and called EMS. Patient was evaluated in the emergency room, x-rays were obtained including a CT of the chest and CT of the head were negative. X-ray of the humerus shows a spiral oblique fracture. She was placed in a splint, orthopedic surgeon Dr. Cooper was called and recommended n.p.o. after midnight for surgery in the morning. Patient was given Dilaudid in the emergency room and she is comfortable at this time. Denies any numbness or tingling on the right hand. Laboratory workup completed essentially unremarkable except for mild leukocytosis. Patient indicates she has history of frequent falls, despite having surgery back in 2016. She sees pain management and is on hydrocodone at home. Uses a walker occasionally for ambulation. Patient indicates that prior to fall she had been doing well, no chest pain, has some shortness of breath with activity but she is very sedentary. Denies any fever, no chills. No changes in bowel movement, she has urinary incontinence. Indicates that approximately a month ago Dr. Stoll did baseline echo and stress test and all were normal. Denies hx of CAD. Patient is admitted for further evaluation and treatment. Patient update on day of discharge: This is a pleasant 73-year-old white female with significant past medical history of fibromyalgia, osteoarthritis, frequent falls, type 2 diabetes, sleep apnea, urinary incontinence, prior right knee replacement, s/p C4/C5 interbody fusion with cervical plate placement and removal of the C5-C7 cervical plate 2016, myelopathy. Patient indicates that she was walking in her kitchen when she missed a step and tripped and fell face forward hitting her right knee and right arm and shoulder. Patient denies any loss of consciousness, no neck pain. She laid on the floor and her significant other came to assist her and called EMS. Patient was evaluated in the emergency room, x-rays were obtained including a CT of the chest and CT of the head were negative. X-ray of the humerus shows a spiral oblique fracture. She was placed in a splint, orthopedic surgeon Dr. Cooper was called and recommended n.p.o. after midnight for surgery in the morning. Patient was given Dilaudid in the emergency room and she is comfortable at this time. Denies any numbness or tingling on the right hand. Laboratory workup completed essentially unremarkable except for mild leukocytosis. Patient indicates she has history of frequent falls, despite having surgery back in 2016. She sees pain management and is on hydrocodone at home. Uses a walker occasionally for ambulation. Patient indicates that prior to fall she had been doing well, no chest pain, has some shortness of breath with activity but she is very sedentary. Denies any fever, no chills. No changes in bowel movement, she has urinary incontinence. Indicates that approximately a month ago Dr. Stoll did baseline echo and stress test and all were normal. Denies hx of CAD. Patient is admitted for further evaluation and treatment. 06-12 follow up for humerus fracture, s/p fall: Patient is awake alert oriented 3. Indicates she had a rough night, could not get comfortable. Pain is well controlled. Going for surgery today. Denies any chest pain, no shortness of breath. No fever. 06-13 follow up for humerus fracture, s/p fall: Patient is awake alert oriented 3. s/p ORIF right humerus 06/12, sitting up in chair, took 2 nurses to get out of bed. Sleepy, awakes to voice, oriented x3. Wants to go home not rehab. No cp , no sob, Pain stable. No fever. BP elevated up to 180s last night. 06-14 STILL COMPLAINING OF PAIN NOT BEING CONTROLLED WILL ADJUST TO PO PAIN MEDS AM LABS PT AND OT WILL NEED SNF 06-15 NOT MOBILE NEEDS SNF DC TO SNF WHEN BED AVAILABLE DW RN AND PT AND CM DS: Diagnosis - Discharge Diagnosis (1) Fall Status: Acute (2) Fracture, humerus Status: Acute (3) Hematoma of frontal scalp Status: Acute (4) Diabetes 1.5, managed as type 2 Status: Chronic (5) Chronic back pain Status: Chronic (6) Fibromyalgia Status: Chronic (7) STARR (obstructive sleep apnea) Status: Chronic (8) Hypertension Status: Chronic DS: Medications - Discharge Medications Prescriptions: hydrocodone-acetaminophen [Knobel] 1 tab PO Q4H PRN #42 tab PRN Reason: Acute Pain DS: Summary Hospital Course: This is a pleasant 73-year-old white female with significant past medical history of fibromyalgia, osteoarthritis, frequent falls, type 2 diabetes, sleep apnea, urinary incontinence, prior right knee replacement, s/p C4/C5 interbody fusion with cervical plate placement and removal of the C5-C7 cervical plate 2016, myelopathy. Patient indicates that she was walking in her kitchen when she missed a step and tripped and fell face forward hitting her right knee and right arm and shoulder. Patient denies any loss of consciousness, no neck pain. She laid on the floor and her significant other came to assist her and called EMS. Patient was evaluated in the emergency room, x-rays were obtained including a CT of the chest and CT of the head were negative. X-ray of the humerus shows a spiral oblique fracture. She was placed in a splint, orthopedic surgeon Dr. Cooper was called and recommended n.p.o. after midnight for surgery in the morning. Patient was given Dilaudid in the emergency room and she is comfortable at this time. Denies any numbness or tingling on the right hand. Laboratory workup completed essentially unremarkable except for mild leukocytosis. Patient indicates she has history of frequent falls, despite having surgery back in 2016. She sees pain management and is on hydrocodone at home. Uses a walker occasionally for ambulation. Patient indicates that prior to fall she had been doing well, no chest pain, has some shortness of breath with activity but she is very sedentary. Denies any fever, no chills. No changes in bowel movement, she has urinary incontinence. Indicates that approximately a month ago Dr. Stoll did baseline echo and stress test and all were normal. Denies hx of CAD. Patient is admitted for further evaluation and treatment. 06-12 follow up for humerus fracture, s/p fall: Patient is awake alert oriented 3. Indicates she had a rough night, could not get comfortable. Pain is well controlled. Going for surgery today. Denies any chest pain, no shortness of breath. No fever. 06-13 follow up for humerus fracture, s/p fall: Patient is awake alert oriented 3. s/p ORIF right humerus 06/12, sitting up in chair, took 2 nurses to get out of bed. Sleepy, awakes to voice, oriented x3. Wants to go home not rehab. No cp , no sob, Pain stable. No fever. BP elevated up to 180s last night. 06-14 STILL COMPLAINING OF PAIN NOT BEING CONTROLLED WILL ADJUST TO PO PAIN MEDS AM LABS PT AND OT WILL NEED SNF 06-15 NOT MOBILE NEEDS SNF DC TO SNF WHEN BED AVAILABLE DW RN AND PT AND CM 73-year-old female with history of chronic pain, fibromyalgia, prior anterior cervical fusion, frequent falls, hypertension. Patient tripped and fell face forward hitting her forehead, right arm and shoulder. No LOC. Imaging studies were completed, CT of the head and chest negative. She was found with WITH midhumerus spiral/oblique fracture. She was placed in a splint and case was discussed with orthopedic surgeon. Status post mechanical fall, right mid humeral spiral oblique fracture. s/p ORIF right humerus 06/12 POD #3 -Appreciate orthopedic input -post op care Continue with Knobel PRN and Morphine. DC Dilaudid -PT/OT, recommendations noted. PT recommends SNF. Pt. unsteady unable to use walker. -CBC in am Type 2 diabetes BGM elevated, up to 300 Accu-Cheks before meals and at bedtime with insulin therapy as needed, inc. to medium scale -Resume Glimepiride Diabetic diet - History of frequent falls, prior history of cervical neck surgery. -Physical therapy Chronic pain, history of fibromyalgia and back pain. -Continue with pain management INCREASE PAIN MED Obstructive sleep apnea, uses CPAP at home Patient will have significant other to bring home CPAP for use. Hypertension, elevated up to 180s Continue metoprolol. -Add Lisinopril 5 mg po daily -Vasotec PRN Enc. IS use SCDs for DVT prophylaxis D/W pt, wants home but not safe for dc. Significant other can help some but not around the clock. She agrees with SNF CM consult for SNF placement. PAIN RX WRITTEN BY ORTHO ALREADY - Time Spent with Patient Total time spent providing and/or coordinating discharge services: Greater than 30 minutes - Quality: VTE Deep Vein Thrombosis/Pulmonary Embolism Present on Admission: No Exam Vital signs: Vital Signs 06/14/18 16:00 06/14/18 20:00 06/14/18 20:50 Temperature 97.2 F L 98.2 F Pulse Rate 112 H 78 Respiratory Rate 17 18 18 Blood Pressure 166/79 H 168/83 H Pulse Oximetry 96 97 06/14/18 21:30 06/15/18 00:00 06/15/18 00:20 Temperature 98.7 F Pulse Rate 109 H Respiratory Rate 19 18 Blood Pressure 151/93 H Pulse Oximetry 93 L 93 L 06/15/18 05:35 06/15/18 07:05 06/15/18 08:00 Temperature 98.1 F Pulse Rate 123 H Respiratory Rate 17 18 16 Blood Pressure 178/96 H Pulse Oximetry 91 L 06/15/18 09:05 06/15/18 12:00 Temperature 97.3 F L Pulse Rate 98 H Respiratory Rate 16 Blood Pressure 185/89 H Pulse Oximetry 93 L 95 Intake & Output 06/14/18 06/15/18 06/15/18 18:59 06:59 18:59 Intake Total 1100 / 1100 Balance 1100 / 1100 Intake: Oral 1100 / 1100 Other: # Voids 4 Date of Last Bowel Movement 06/12/18 06/12/18 06/12/18 Narrative: GENERAL: 73-year-old obese female, no apparent distress. SKIN: Midforehead hematoma noted, left periorbital bruising, mild bruising noted over right eyelid. Abrasion over right knee. Bruising noted top lip. HEAD: Atraumatic. Normocephalic. EYES: Pupils equal and round. No scleral icterus. No injection or drainage. ENT: No nasal bleeding or discharge. Mucous membranes pink and moist. NECK: Trachea midline. No JVD. CARDIOVASCULAR: Regular rate and rhythm. RESPIRATORY: No accessory muscle use. Clear to auscultation. Breath sounds equal bilaterally. GASTROINTESTINAL: Abdomen soft, non-tender, nondistended. Hepatic and splenic margins not palpable. MUSCULOSKELETAL: Right upper extremity with dressing D/I, has sling. Intact sensation to right fingertips, right radial pulse 2+. Right FA swelling. Capillary refill less than 3 seconds. No other joint abnormality. NEUROLOGICAL: Sleepy, Awakes to voice, oriented 3. No obvious cranial nerve deficits. Normal speech. PSYCHIATRIC: Appropriate mood and affect; insight and judgment normal. Results Procedures completed during hospitalization: - Preoperative Diagnosis (1) Closed right humeral fracture Date of procedure: 06/12/18 Procedure: Open reduction internal fixation right humerus shaft fracture Anesthesia: GETA Surgeon: David Feliciano MD Drier Operator: JAZMIN Armas PA-C The surgical procedure was assisted by my physician registered dental assistant. My P.A. presence was necessary throughout this case for the manipulation and positioning of the surgical extremity. My P.A. was assisting me throughout the duration of this procedure. The skill set of a physician registered dental assistant was medically necessary to complete this procedure. During the surgical case the surgical brace maker was working at the back table and the physician registered dental assistant was directly assisting me. Operation and Findings: Implants used: Synthes Plan of activity: Nonweightbearing, passive range of motion right arm Details of procedure: Patient was seen and evaluated preoperatively. Treatment options were discussed regarding right humerus fracture including surgical and nonsurgical treatments. After detailed discussion of risk and benefits of procedure patient wishes to proceed with surgery. Risks of surgery include bleeding, infection, nonunion, malunion, painful hardware, loss of motion of shoulder and elbow, weakness and numbness of arm, as well as medical competitions including blood clots stroke and . Patient was brought to operating room and placed on the OR table. GETA was administered by anesthesiologist. Operative arm and shoulder were prepped with alcohol followed by Hibiclens and draped usual sterile fashion. Timeout procedure was performed. IV antibiotics were given prior to incision. A standard anterior approach was utilized. Subcutaneous tissues was dissected with Bovie. Cephalic vein was identified and protected. Proximally the deltopectoral interval was opened. Distally the brachialis was split. The fracture was identified. There was an area of comminution. Soft tissue was removed from the fracture site. Fracture site was cleaned with curettes. At this point the fracture was reduced using fracture tenaculums. Multiplanar fluoroscopy confirmed excellent of fracture. 3.5 cortical lag screws were used to compress the fracture. A Synthes 3.5 plate was contoured to fit the humerus. Plate was provisionally held the bone with K wires. 3.5 cortical screws were placed on each side of the fracture. The screws were placed to add compression to fracture. Multiple screws were placed in each side of the fracture. All screws were predrilled and premeasured for appropriate length. Final fluoroscopy revealed excellent alignment of fracture with well-placed hardware. Incision was thoroughly irrigated. Fascia was closed with #1 Vicryl , subcutaneous tissues closed with 3-0 Vicryl, and skin was closed with matt. Sterile dressings were applied. Needle and sponge counts were correct. Patient was placed into a sling, and then transferred to recovery room in stable condition Documented By: David Feliciano MD 06/12/18 1020 Completed studies during hospitalization: Laboratory Results WBC 10.5 th/mm3 (4.0-11.0) 06/15/18 06:40 RBC 4.37 mil/mm3 (4.00-5.30) 06/15/18 06:40 Hgb 13.6 gm/dL (11.6-15.3) 06/15/18 06:40 Hct 40.6 % (35.0-46.0) 06/15/18 06:40 MCV 92.8 fL (80.0-100.0) 06/15/18 06:40 MCH 31.1 pg (27.0-34.0) 06/15/18 06:40 MCHC 33.5 % (32.0-36.0) 06/15/18 06:40 RDW 13.2 % (11.6-17.2) 06/15/18 06:40 Plt Count 163 th/mm3 (150-450) 06/15/18 06:40 MPV 9.8 fL (7.0-11.0) 06/15/18 06:40 Neut % (Auto) 68.1 % (16.0-70.0) 06/15/18 06:40 Lymph % (Auto) 21.7 % (9.0-44.0) 06/15/18 06:40 [place] % (Auto) 7.2 % (0.0-8.0) 06/15/18 06:40 Eos % (Auto) 2.3 % (0.0-4.0) 06/15/18 06:40 Baso % (Auto) 0.7 % (0.0-2.0) 06/15/18 06:40 Neut # (Auto) 7.2 th/mm3 (1.8-7.7) 06/15/18 06:40 Lymph # (Auto) 2.3 th/mm3 (1.0-4.8) 06/15/18 06:40 [place] # (Auto) 0.8 th/mm3 (0.0-0.9) 06/15/18 06:40 Eos # (Auto) 0.2 th/mm3 (0.0-0.4) 06/15/18 06:40 Baso # (Auto) 0.1 th/mm3 (0.0-0.2) 06/15/18 06:40 WBC Differential . 06/15/18 06:40 Differential Comment Auto diff final 06/15/18 06:40 PT 10.2 sec (9.8-11.6) 06/11/18 13:00 INR 1.0 Ratio 06/11/18 13:00 APTT 22.8 sec (24.3-30.1) L 06/11/18 13:00 Sodium 143 meq/L (136-145) 06/15/18 06:40 Potassium 3.4 meq/L (3.5-5.1) L 06/15/18 06:40 Chloride 103 meq/L (98-107) 06/15/18 06:40 Carbon Dioxide 31.0 meq/L (21.0-32.0) 06/15/18 06:40 Anion Gap 9 meq/L (5-15) 06/15/18 06:40 BUN 14 mg/dL (7-18) 06/15/18 06:40 Creatinine 0.59 mg/dL (0.50-1.00) 06/15/18 06:40 Estimated GFR Greater than 89 mL/min (>89) 06/15/18 06:40 POC Glucose 286 mg/dl (68-110) H 06/15/18 12:43 Random Glucose 192 mg/dL (74-106) H 06/15/18 06:40 Hemoglobin A1c 8.0 % (4.3-6.0) H 06/14/18 05:02 Calcium 8.6 mg/dL (8.5-10.1) 06/15/18 06:40 Phosphorus 2.9 mg/dL (2.5-4.9) 06/15/18 06:40 Magnesium 1.9 mg/dL (1.5-2.5) 06/15/18 06:40 Total Bilirubin 0.4 mg/dL (0.2-1.0) 06/15/18 06:40 AST 18 U/L (15-37) 06/15/18 06:40 ALT 23 U/L (10-53) 06/15/18 06:40 Alkaline Phosphatase 117 U/L (45-117) 06/15/18 06:40 Total Protein 6.8 g/dL (6.4-8.2) 06/15/18 06:40 Albumin 2.6 g/dL (3.4-5.0) L 06/15/18 06:40 TSH 2.520 uIU/mL (0.358-3.740) 06/15/18 06:40 Free T4 1.37 ng/dL (0.76-1.46) 06/15/18 06:40 Urine Color Yellow (Yellw/Straw) 06/12/18 05:25 Urine Clarity Hazy (Clear) H 06/12/18 05:25 Urine pH 6.0 (5.0-8.5) 06/12/18 05:25 Ur Specific [place] 1.024 (1.002-1.035) 06/12/18 05:25 Urine Protein Negative mg/dL (Neg-Trace) 06/12/18 05:25 Urine Glucose (UA) 500 or greater mg/dL (Negative) 06/12/18 05:25 Urine Ketones Negative mg/dL (Negative) 06/12/18 05:25 Urine Occult Blood Negative (Negative) 06/12/18 05:25 Urine Nitrate Negative (Negative) 06/12/18 05:25 Urine Bilirubin Negative (Negative) 06/12/18 05:25 Urine Urobilinogen Less than 2 mg/dL (Less than 2) 06/12/18 05:25 Ur Leukocyte Esterase Negative (Negative) 06/12/18 05:25 Urine RBC 2 /hpf (0-3) 06/12/18 05:25 Urine WBC 8 /hpf (0-5) H 06/12/18 05:25 Ur Squamous Epith Cells 2 /hpf (0-5) 06/12/18 05:25 Urine Mucus Few /lpf (Occasional) H 06/12/18 05:25 Micro UA Comment Culture not ind 06/12/18 05:25 Ur Microscopic Review Not Reportable 06/12/18 05:25 Urine Culture Comments Culture not ind 06/12/18 05:25 Blood Type A Positive 06/11/18 13:00 Blood Type Recheck Required 06/11/18 13:00 Antibody Screen Negative 06/11/18 13:[address] 06/11/18 12:51 CONCLUSION: 1. No acute fracture or prevertebral soft tissue swelling. 2. Moderate spinal stenosis and bilateral foraminal narrowing at C5-6. 3. Mild spinal stenosis and moderate left neuroforaminal narrowing at C4-C5. 4. Severe left neuroforaminal narrowing and moderate right neuroforaminal narrowing without spinal stenosis at C3-4. 5. Grade I anterolisthesis of C7 in relation to T1. 6. Moderate left neuroforaminal narrowing at C2-3 and C6-7. 7. Straightening of the normal cervical lordosis. Chest X-Ray 06/11/18 12:51 CONCLUSION: Negative examination. Face CT 06/11/18 12:51 CONCLUSION: 1. Left frontal subcutaneous hematoma. No evidence of underlying facial fracture or significant sinus disease Head CT 06/11/18 12:51 CONCLUSION: 1. Negative CT Head non contrast. Mild atrophy . Pelvis X-Ray 06/11/18 12:51 CONCLUSION: Negative examination. Chest CT 06/11/18 12:53 CONCLUSION: 1. Negative CT Chest non contrast. Shoulder X-Ray 06/11/18 12:53 CONCLUSION: Oblique displaced humeral shaft fracture as described above. Wrist X-Ray 06/11/18 14:47 CONCLUSION: 1. 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 2. No acute fracture, dislocation or soft tissue swelling. Humerus X-Ray 06/12/18 00:00 CONCLUSION: Anatomic alignment. Labs on day of discharge: Labs from last 24 hours 06/15/18 06/15/18 06/15/18 12:43 07:04 06:40 WBC RBC Hgb Hct MCV MCH MCHC RDW Plt Count MPV Neut % (Auto) Lymph % (Auto) [place] % (Auto) Eos % (Auto) Baso % (Auto) Neut # (Auto) Lymph # (Auto) [place] # (Auto) Eos # (Auto) Baso # (Auto) WBC Differential Differential Comment Sodium 143 Potassium 3.4 L Chloride 103 Carbon Dioxide 31.0 Anion Gap 9 BUN 14 Creatinine 0.59 Estimated GFR Greater than 89 POC Glucose 286 H 190 H Random Glucose 192 H Hemoglobin A1c Calcium 8.6 Phosphorus 2.9 Magnesium 1.9 Total Bilirubin 0.4 AST 18 ALT 23 Alkaline Phosphatase 117 Total Protein 6.8 Albumin 2.6 L TSH 2.520 Free T4 1.37 06/15/18 06/15/18 06/14/18 06:40 06:40 19:46 WBC 10.5 RBC 4.37 Hgb 13.6 Hct 40.6 MCV 92.8 MCH 31.1 MCHC 33.5 RDW 13.2 Plt Count 163 MPV 9.8 Neut % (Auto) 68.1 Lymph % (Auto) 21.7 [place] % (Auto) 7.2 Eos % (Auto) 2.3 Baso % (Auto) 0.7 Neut # (Auto) 7.2 Lymph # (Auto) 2.3 [place] # (Auto) 0.8 Eos # (Auto) 0.2 Baso # (Auto) 0.1 WBC Differential . Differential Comment Auto diff final Sodium Potassium Chloride Carbon Dioxide Anion Gap BUN Creatinine Estimated GFR POC Glucose 234 H Random Glucose Hemoglobin A1c Pending Calcium Phosphorus Magnesium Total Bilirubin AST ALT Alkaline Phosphatase Total Protein Albumin TSH Free T4 - Impressions ITS Impressions Cervical Spine CT 06/11/18 12:51 CONCLUSION: 1. No acute fracture or prevertebral soft tissue swelling. 2. Moderate spinal stenosis and bilateral foraminal narrowing at C5-6. 3. Mild spinal stenosis and moderate left neuroforaminal narrowing at C4-C5. 4. Severe left neuroforaminal narrowing and moderate right neuroforaminal narrowing without spinal stenosis at C3-4. 5. Grade I anterolisthesis of C7 in relation to T1. 6. Moderate left neuroforaminal narrowing at C2-3 and C6-7. 7. Straightening of the normal cervical lordosis. Chest X-Ray 06/11/18 12:51 CONCLUSION: Negative examination. Face CT 06/11/18 12:51 CONCLUSION: 1. Left frontal subcutaneous hematoma. No evidence of underlying facial fracture or significant sinus disease Head CT 06/11/18 12:51 CONCLUSION: 1. Negative CT Head non contrast. Mild atrophy . Pelvis X-Ray 06/11/18 12:51 CONCLUSION: Negative examination. Chest CT 06/11/18 12:53 CONCLUSION: 1. Negative CT Chest non contrast. Shoulder X-Ray 06/11/18 12:53 CONCLUSION: Oblique displaced humeral shaft fracture as described above. Wrist X-Ray 06/11/18 14:47 CONCLUSION: 1. 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 2. No acute fracture, dislocation or soft tissue swelling. Humerus X-Ray 06/12/18 00:00 CONCLUSION: Anatomic alignment. Discharge Plan - Discharge Disposition Patient Disposition: Discharge to SNF - Discharge Condition Condition: Good - Discharge Order Discharge Orders: Discharge Order (Routine); Ordered 06/15/18 Ordered By: Gerardo Matthews Orthopedic Clear for Discharge (Routine); Ordered 06/15/18 Ordered By: Cristi Lewis - Discharge Details Anticipated Discharge Date: 06/15/18 Discharge Comment: orthopedics clear for discharge - Physicians Team Primary Care Provider: MARIA VICTORIA Luevano Attending Provider: Gerardo Matthews Other Providers: Jesse Cooper MD ; David Feliciano MD ; [facility], [place] ; [facility],[place]
[2018-06-15 16:38] LABS: Hemoglobin A1c 8.1 % (4.3-6.0)
[2018-06-16 01:57] VITALS: BP 161/89; TEMP 97.8
[2018-06-16] MEDS ORDERED: dilTIAZem Inj 125 MG in Sodium Chlor 0.9% Inj 100 ML IV.CONT PRN (03:35)
[2018-06-16 04:09] VITALS: O2SAT 99
[2018-06-16 04:24] VITALS: PULSE 130; RESP 32
[2018-06-16] MEDS ORDERED: ALTEPLASE 50 MG IV.PUSH ONE (04:35)
[2018-06-16] MEDS ORDERED: [UNRECOGNIZED DRUG - OTHER] IV.PUSH ONE (04:35)
[2018-06-16] MEDS ORDERED: [UNRECOGNIZED DRUG - OTHER] IV.PUSH PRN (04:55)
[2018-06-16] MEDS ORDERED: ALTEPLASE 50 MG IV.PUSH PRN (04:55)
[2018-06-16] MEDS ORDERED: Sodium Bicarbonate 8.4% Inj 150 MEQ in Water for Inj, Sterile 850 ML IV.CONT SCH (04:56)
[2018-06-16 04:57] LABS: Baso # (Auto) 0.2 th/mm3 (0.0-0.2); Eos # (Auto) 0.2 th/mm3 (0.0-0.4); Hemoglobin 9.8 gm/dL (11.6-15.3); Lymph % (Auto) 60.9 % (9.0-44.0); Mean Corpuscular HGB Conc 31.5 % (32.0-36.0); Mean Corpuscular Hemoglobin 31.4 pg (27.0-34.0); Mean Corpuscular Volume 99.7 fL (80.0-100.0); Mean Platelet Volume 10.2 fL (7.0-11.0); Mono # (Auto) 1.2 th/mm3 (0.0-0.9); Mono % (Auto) 5.9 % (0.0-8.0); Neut # (Auto) 6.1 th/mm3 (1.8-7.7); Neut % (Auto) 31.2 % (16.0-70.0); Platelet Count 105 th/mm3 (150-450); Red Blood Count 3.11 mil/mm3 (4.00-5.30); Red Cell Distribution Width 13.7 % (11.6-17.2); White Blood Count 19.7 th/mm3 (4.0-11.0)
[2018-06-16] MEDS ORDERED: Calcium Chloride Inj 1 GM/10 ML Syringe IV.CONT ONE (05:00)
[2018-06-16] MEDS ORDERED: Norepinephrine Inj 4 MG/4 ML Ampul IV.CONT ONE (05:00)
[2018-06-16] MEDS ORDERED: Atropine Inj 1 MG/10 ML Syringe IV.PUSH ONE ×2 (05:00)
[2018-06-16] MEDS ORDERED: DOPamine 800 MG/500 ML Premix 800 MG/500 ML PLAST..BAG IV.CONT ONE ×2 (05:00)
[2018-06-16] MEDS ORDERED: Sodium Bicarbonate 8.4% Inj 50 MEQ/50 ML Syringe IV.CONT ONE ×3 (05:00)
[2018-06-16 05:15] LABS: Alanine Aminotransferase 606 U/L (10-53); Albumin 1.7 g/dL (3.4-5.0); Alkaline Phosphatase 101 U/L (45-117); Anion Gap 24 meq/L (5-15); Aspartate Aminotransferase 811 U/L (15-37); Blood Urea Nitrogen 18 mg/dL (7-18); Calcium 9.9 mg/dL (8.5-10.1); Carbon Dioxide 24.8 meq/L (21.0-32.0); Chloride 99 meq/L (98-107); Glomerular Filtration Rate 38 mL/min (>89); Magnesium 2.8 mg/dL (1.5-2.5); Sodium 148 meq/L (136-145); Total Protein 4.6 g/dL (6.4-8.2); Troponin I 0.25 ng/mL (0.02-0.05)
--- NOTE | 2018-06-16 05:19 | P.PNCC ---
Critical Care Event Note Code activated: Yes Narrative: This case had a high probability of a clinically significant, sudden, or life threatening deterioration of this patient's condition which required my full and direct attention, intervention and personal management. Responded to CODE BLUE at [facility]. Per the rapid response nurse the patient was transferred to see [facility] from 6 due to shortness of breath and tachycardia. She has received Cardizem ordered by rapid response team and was placed on nasal cannula. Patient kept complaining of shortness of breath when she became unresponsive, and pulseless. When I have arrived the CPR was in progress. I have intubated the patient and placed immediately central line for IV access. Patient regained spontaneous circulation after 3 cycles of CPR, injections of epinephrine and sodium bicarbonate. The patient was transferred to medical ICU where she suffered from another cardiac arrest. The ACLS protocol continued with multiple cycles of injections of epinephrine sodium bicarbonate and calcium. Occasionally patient regained spontaneous circulation for few minutes , however despite on infusion of epinephrine drip and dopamine drip she continued to become asystolic. Due to initial presentations of severe shortness of breath, tachycardia, morbid obesity, and recent long bone fracture , the pulmonary embolism was highly suspicious and TPA push was administered with another repeat in 15 minutes. Neither after the first TPA bolus nor second TPA injection patient did regain spontaneous circulation and was pronounced at 5:02 AM June 16, 2018 Critical care time: 75 - 104 mins
[2018-06-16 05:21] LABS: Glucose,Random 579 mg/dL (74-106); Phosphorus 8.6 mg/dL (2.5-4.9); Potassium 2.9 meq/L (3.5-5.1)
--- NOTE | 2018-06-16 05:26 | P.PCN ---
Date of procedure: 06/16/18 Procedure: A time-out was completed verifying correct patient, procedure, site, positioning , and special equipment if applicable. The patient was placed in a dependent position appropriate for central line placement based on the vein to be cannulated. The patients right groin was prepped and draped in sterile fashion. 1% Lidocaine was used to anesthetize the surrounding skin area. A triple lumen 9-Maori Cordis catheter was introduced into the the common femoral vein using the Seldinger technique and under ultrasound guidance. The catheter was threaded smoothly over the guide wire and appropriate blood return was obtained. Each lumen of the catheter was evacuated of air and flushed with sterile saline. The catheter was then sutured in place to the skin and a sterile dressing applied. Perfusion to the extremity distal to the point of catheter insertion was checked and found to be adequate. Estimated Blood Loss: 1ml The patient tolerated the procedure well and there were no complications. Anesthesia: local Surgeon: Shin Conklin Disposition: ICU
--- NOTE | 2018-06-16 05:27 | P.PCN ---
Date of procedure: 06/16/18 Procedure: Arterial line placement A time-out was completed verifying correct patient, procedure, site, positioning , and special equipment if applicable. The patients right groin was prepped and draped in sterile fashion. 1% Lidocaine was used to anesthetize the area. A 18G Arrow arterial line was introduced into the femoral artery. The catheter was threaded over the guide wire and the needle was removed with appropriate pulsatile blood return. The catheter was then sutured in place to the skin and a sterile dressing applied. Perfusion to the extremity distal to the point of catheter insertion was checked and found to be adequate. Estimated Blood Loss: 1ml The patient tolerated the procedure well and there were no complications.
[2018-06-16 05:28] LABS: ABG Base Excess -13.6 mmol/L (-2-2); ABG PCO2 75 mmHg (38-42); ABG PO2 73 mmHG (61-120)
--- NOTE | 2018-06-16 05:28 | P.PCN ---
Date of procedure: 06/16/18 Procedure: Endotracheal Intubation A time-out was completed verifying correct patient, procedure, site, positioning , and special equipment if applicable. The patient was placed in a flat position. The patient was easily ventilated using an ambu bag. The [employer]/ MAC 4 BLADE was used and inserted into the oropharynx at which time there was a Grade 1 view of the vocal cords. A 8-martiniquais endotracheal tube was inserted and visualized going through the vocal cords. The stylette was removed. Colorimetric change was visualized on the CO2 meter. Breath sounds were heard in both lung ramirez equally. The endotracheal tube was placed at 23 cm, measured at the teeth. A chest x-ray was ordered to assess for pneumothorax and verify endotrachealtube placement. Estimated Blood Loss: 0 The patient tolerated the procedure well and there were no complications.
[2018-06-16 05:57] LABS: Eosinophils 4 % (0-4); Monocytes 4 % (0-8); Tallied Nucleated RBC 1 (0-0)
[2018-06-16 05:58] LABS: Lymphocytes 51 % (9-44); Platelet Estimate Normal (Normal); Platelet Morphology Normal (Normal)
[2018-06-16 05:59] LABS: Ovalocytes 1+
--- NOTE | 2018-06-16 06:08 | XR ---
EXAM DATE: 06/16/2018 5:57 AM EDT AGE/SEX: 73 years / Female INDICATIONS: Short of breath. CLINICAL DATA: This is the patient's subsequent encounter. Patient reports that signs and symptoms h ave been present for 4 - 6 days and indicates a pain score of 0/10. MEDICAL/SURGICAL HISTORY: Cardiovascular disease. Hypertension. Chronic obstructive pulmonary disease. diabetes Hysterectomy. Appendectomy. total knee surgery, right shoulder. [place] [facility] [place]. . FINDINGS: Single AP view the chest. Endotracheal tube is now in place with the tip at the octavia. Lung volumes are low. Mild patchy opacity of the left lung base. No evidence of pleural effusion or pneumothorax. Cardiomediastinal silhouette within normal limits. CONCLUSION: 1. Endotracheal tube in place with tip at the octavia. 2. Mild patchy left lung base pulmonary parenchymal opacity. Electronically signed by: Juan Sheehan MD 06/16/2018 6:06 AM EDT
--- NOTE | 2018-06-16 09:12 | P.DS ---
Date of admission: 06/11/18 15:37 Primary care physician: [facility] Attending physician on discharge: Gerardo Matthews Anticipated date of discharge: 06/15/18 Brief History from admission: This is a pleasant 73-year-old white female with significant past medical history of fibromyalgia, osteoarthritis, frequent falls, type 2 diabetes, sleep apnea, urinary incontinence, prior right knee replacement, s/p C4/C5 interbody fusion with cervical plate placement and removal of the C5-C7 cervical plate 2016, myelopathy. Patient indicates that she was walking in her kitchen when she missed a step and tripped and fell face forward hitting her right knee and right arm and shoulder. Patient denies any loss of consciousness, no neck pain. She laid on the floor and her significant other came to assist her and called EMS. Patient was evaluated in the emergency room, x-rays were obtained including a CT of the chest and CT of the head were negative. X-ray of the humerus shows a spiral oblique fracture. She was placed in a splint, orthopedic surgeon Dr. Cooper was called and recommended n.p.o. after midnight for surgery in the morning. Patient was given Dilaudid in the emergency room and she is comfortable at this time. Denies any numbness or tingling on the right hand. Laboratory workup completed essentially unremarkable except for mild leukocytosis. Patient indicates she has history of frequent falls, despite having surgery back in 2016. She sees pain management and is on hydrocodone at home. Uses a walker occasionally for ambulation. Patient indicates that prior to fall she had been doing well, no chest pain, has some shortness of breath with activity but she is very sedentary. Denies any fever, no chills. No changes in bowel movement, she has urinary incontinence. Indicates that approximately a month ago Dr. Stoll did baseline echo and stress test and all were normal. Denies hx of CAD. Patient is admitted for further evaluation and treatment. Patient update on day of discharge: This is a pleasant 73-year-old white female with significant past medical history of fibromyalgia, osteoarthritis, frequent falls, type 2 diabetes, sleep apnea, urinary incontinence, prior right knee replacement, s/p C4/C5 interbody fusion with cervical plate placement and removal of the C5-C7 cervical plate 2016, myelopathy. Patient indicates that she was walking in her kitchen when she missed a step and tripped and fell face forward hitting her right knee and right arm and shoulder. Patient denies any loss of consciousness, no neck pain. She laid on the floor and her significant other came to assist her and called EMS. Patient was evaluated in the emergency room, x-rays were obtained including a CT of the chest and CT of the head were negative. X-ray of the humerus shows a spiral oblique fracture. She was placed in a splint, orthopedic surgeon Dr. Cooper was called and recommended n.p.o. after midnight for surgery in the morning. Patient was given Dilaudid in the emergency room and she is comfortable at this time. Denies any numbness or tingling on the right hand. Laboratory workup completed essentially unremarkable except for mild leukocytosis. Patient indicates she has history of frequent falls, despite having surgery back in 2016. She sees pain management and is on hydrocodone at home. Uses a walker occasionally for ambulation. Patient indicates that prior to fall she had been doing well, no chest pain, has some shortness of breath with activity but she is very sedentary. Denies any fever, no chills. No changes in bowel movement, she has urinary incontinence. Indicates that approximately a month ago Dr. Stoll did baseline echo and stress test and all were normal. Denies hx of CAD. Patient is admitted for further evaluation and treatment. Patient update on day of discharge: This is a pleasant 73-year-old white female with significant past medical history of fibromyalgia, osteoarthritis, frequent falls, type 2 diabetes, sleep apnea, urinary incontinence, prior right knee replacement, s/p C4/C5 interbody fusion with cervical plate placement and removal of the C5-C7 cervical plate 2016, myelopathy. Patient indicates that she was walking in her kitchen when she missed a step and tripped and fell face forward hitting her right knee and right arm and shoulder. Patient denies any loss of consciousness, no neck pain. She laid on the floor and her significant other came to assist her and called EMS. Patient was evaluated in the emergency room, x-rays were obtained including a CT of the chest and CT of the head were negative. X-ray of the humerus shows a spiral oblique fracture. She was placed in a splint, orthopedic surgeon Dr. Cooper was called and recommended n.p.o. after midnight for surgery in the morning. Patient was given Dilaudid in the emergency room and she is comfortable at this time. Denies any numbness or tingling on the right hand. Laboratory workup completed essentially unremarkable except for mild leukocytosis. Patient indicates she has history of frequent falls, despite having surgery back in 2016. She sees pain management and is on hydrocodone at home. Uses a walker occasionally for ambulation. Patient indicates that prior to fall she had been doing well, no chest pain, has some shortness of breath with activity but she is very sedentary. Denies any fever, no chills. No changes in bowel movement, she has urinary incontinence. Indicates that approximately a month ago Dr. Stoll did baseline echo and stress test and all were normal. Denies hx of CAD. Patient is admitted for further evaluation and treatment. 06-12 follow up for humerus fracture, s/p fall: Patient is awake alert oriented 3. Indicates she had a rough night, could not get comfortable. Pain is well controlled. Going for surgery today. Denies any chest pain, no shortness of breath. No fever. 06-13 follow up for humerus fracture, s/p fall: Patient is awake alert oriented 3. s/p ORIF right humerus 06/12, sitting up in chair, took 2 nurses to get out of bed. Sleepy, awakes to voice, oriented x3. Wants to go home not rehab. No cp , no sob, Pain stable. No fever. BP elevated up to 180s last night. 06-14 STILL COMPLAINING OF PAIN NOT BEING CONTROLLED WILL ADJUST TO PO PAIN MEDS AM LABS PT AND OT WILL NEED SNF 06-15 NOT MOBILE NEEDS SNF DC TO SNF WHEN BED AVAILABLE [facility] RN AND PT AND CM WENT INTO AFIB THEN RESPIRATORY ARREST AND CARDIAC ARREST This case had a high probability of a clinically significant, sudden, or life threatening deterioration of this patient's condition which required my full and direct attention, intervention and personal management. Responded to [facility] at [facility]. Per the rapid response nurse the patient was transferred to see [facility] from [facility] due to shortness of breath and tachycardia. She has received Cardizem ordered by rapid response team and was placed on nasal cannula. Patient kept complaining of shortness of breath when she became unresponsive, and pulseless. When I have arrived the CPR was in progress. I have intubated the patient and placed immediately central line for IV access. Patient regained spontaneous circulation after 3 cycles of CPR, injections of epinephrine and sodium bicarbonate. The patient was transferred to medical ICU where she suffered from another cardiac arrest. The ACLS protocol continued with multiple cycles of injections of epinephrine sodium bicarbonate and calcium. Occasionally patient regained spontaneous circulation for few minutes , however despite on infusion of epinephrine drip and dopamine drip she continued to become asystolic. Due to initial presentations of severe shortness of breath, tachycardia, morbid obesity, and recent long bone fracture , the pulmonary embolism was highly suspicious and TPA push was administered with another repeat in 15 minutes. Neither after the first TPA bolus nor second TPA injection patient did regain spontaneous circulation and was pronounced at 5:02 AM June 16, 2018 DS: Diagnosis - Discharge Diagnosis (1) Fall Status: Acute (2) Fracture, humerus Status: Acute (3) Hematoma of frontal scalp Status: Acute (4) Diabetes 1.5, managed as type 2 Status: Chronic (5) Chronic back pain Status: Chronic (6) Fibromyalgia Status: Chronic (7) STARR (obstructive sleep apnea) Status: Chronic (8) Hypertension Status: Chronic DS: Medications - Discharge Medications Prescriptions: hydrocodone-acetaminophen [Hawthorne] 1 tab PO Q4H PRN #42 tab PRN Reason: Acute Pain DS: Summary Hospital Course: This is a pleasant 73-year-old white female with significant past medical history of fibromyalgia, osteoarthritis, frequent falls, type 2 diabetes, sleep apnea, urinary incontinence, prior right knee replacement, s/p C4/C5 interbody fusion with cervical plate placement and removal of the C5-C7 cervical plate 2016, myelopathy. Patient indicates that she was walking in her kitchen when she missed a step and tripped and fell face forward hitting her right knee and right arm and shoulder. Patient denies any loss of consciousness, no neck pain. She laid on the floor and her significant other came to assist her and called EMS. Patient was evaluated in the emergency room, x-rays were obtained including a CT of the chest and CT of the head were negative. X-ray of the humerus shows a spiral oblique fracture. She was placed in a splint, orthopedic surgeon Dr. Cooper was called and recommended n.p.o. after midnight for surgery in the morning. Patient was given Dilaudid in the emergency room and she is comfortable at this time. Denies any numbness or tingling on the right hand. Laboratory workup completed essentially unremarkable except for mild leukocytosis. Patient indicates she has history of frequent falls, despite having surgery back in 2016. She sees pain management and is on hydrocodone at home. Uses a walker occasionally for ambulation. Patient indicates that prior to fall she had been doing well, no chest pain, has some shortness of breath with activity but she is very sedentary. Denies any fever, no chills. No changes in bowel movement, she has urinary incontinence. Indicates that approximately a month ago Dr. Stoll did baseline echo and stress test and all were normal. Denies hx of CAD. Patient is admitted for further evaluation and treatment. 06-12 follow up for humerus fracture, s/p fall: Patient is awake alert oriented 3. Indicates she had a rough night, could not get comfortable. Pain is well controlled. Going for surgery today. Denies any chest pain, no shortness of breath. No fever. 06-13 follow up for humerus fracture, s/p fall: Patient is awake alert oriented 3. s/p ORIF right humerus 06/12, sitting up in chair, took 2 nurses to get out of bed. Sleepy, awakes to voice, oriented x3. Wants to go home not rehab. No cp , no sob, Pain stable. No fever. BP elevated up to 180s last night. 06-14 STILL COMPLAINING OF PAIN NOT BEING CONTROLLED WILL ADJUST TO PO PAIN MEDS AM LABS PT AND OT WILL NEED SNF 06-15 NOT MOBILE NEEDS SNF DC TO SNF WHEN BED AVAILABLE [facility] RN AND PT AND CM 73-year-old female with history of chronic pain, fibromyalgia, prior anterior cervical fusion, frequent falls, hypertension. Patient tripped and fell face forward hitting her forehead, right arm and shoulder. No LOC. Imaging studies were completed, CT of the head and chest negative. She was found with WITH midhumerus spiral/oblique fracture. She was placed in a splint and case was discussed with orthopedic surgeon. Status post mechanical fall, right mid humeral spiral oblique fracture. s/p ORIF right humerus 06/12 POD #3 -Appreciate orthopedic input -post op care Continue with Hawthorne PRN and Morphine. DC Dilaudid -PT/OT, recommendations noted. PT recommends SNF. Pt. unsteady unable to use walker. -CBC in am Type 2 diabetes BGM elevated, up to 300 Accu-Cheks before meals and at bedtime with insulin therapy as needed, inc. to medium scale -Resume Glimepiride Diabetic diet - History of frequent falls, prior history of cervical neck surgery. -Physical therapy Chronic pain, history of fibromyalgia and back pain. -Continue with pain management INCREASE PAIN MED Obstructive sleep apnea, uses CPAP at home Patient will have significant other to bring home CPAP for use. Hypertension, elevated up to 180s Continue metoprolol. -Add Lisinopril 5 mg po daily -Vasotec PRN Enc. IS use SCDs for DVT prophylaxis D/W pt, wants home but not safe for dc. Significant other can help some but not around the clock. She agrees with SNF CM consult for SNF placement. PAIN RX WRITTEN BY ORTHO ALREADY - Time Spent with Patient Total time spent providing and/or coordinating discharge services: Less than 30 minutes - Quality: VTE Deep Vein Thrombosis/Pulmonary Embolism Present on Admission: No Exam Vital signs: Vital Signs 06/15/18 12:00 06/15/18 16:00 06/15/18 17:26 Temperature 97.3 F L 98.4 F Pulse Rate 98 H 94 H Respiratory Rate 16 16 Blood Pressure 185/89 H 146/82 H Pulse Oximetry 95 94 L 95 06/15/18 20:00 06/15/18 21:28 06/16/18 00:00 Temperature 98.1 F 97.8 F Pulse Rate 125 H 79 Respiratory Rate 18 18 18 Blood Pressure 156/107 H 161/89 H Pulse Oximetry 95 95 06/16/18 00:40 06/16/18 03:15 06/16/18 03:25 Temperature Pulse Rate 130 H Respiratory Rate 18 32 H Blood Pressure Pulse Oximetry 99 06/16/18 04:06 Temperature Pulse Rate Respiratory Rate Blood Pressure Pulse Oximetry 99 Intake & Output 06/15/18 06/16/18 06/16/18 18:59 06:59 18:59 Intake Total 480 / 480 Output Total 200 / 200 Balance 280 / 280 Intake: Oral 480 / 480 Output: Urine 200 / 200 Other: Date of Last Bowel Movement 06/12/18 06/12/18 Narrative: PATIENT SEE PREVIOUS EXAM Results Procedures completed during hospitalization: - Preoperative Diagnosis (1) Closed right humeral fracture Date of procedure: 06/12/18 Procedure: Open reduction internal fixation right humerus shaft fracture Anesthesia: GETA Surgeon: David Feliciano MD Cyber Ops Planner: JAZMIN Armas PA-C The surgical procedure was assisted by my physician office clerk assistant. My P.A. presence was necessary throughout this case for the manipulation and positioning of the surgical extremity. My P.A. was assisting me throughout the duration of this procedure. The skill set of a physician office clerk assistant was medically necessary to complete this procedure. During the surgical case the salesperson surgical appliances was working at the back table and the physician office clerk assistant was directly assisting me. Operation and Findings: Implants used: Synthes Plan of activity: Nonweightbearing, passive range of motion right arm Details of procedure: Patient was seen and evaluated preoperatively. Treatment options were discussed regarding right humerus fracture including surgical and nonsurgical treatments. After detailed discussion of risk and benefits of procedure patient wishes to proceed with surgery. Risks of surgery include bleeding, infection, nonunion, malunion, painful hardware, loss of motion of shoulder and elbow, weakness and numbness of arm, as well as medical competitions including blood clots stroke and . Patient was brought to operating room and placed on the OR table. GETA was administered by anesthesiologist. Operative arm and shoulder were prepped with alcohol followed by Hibiclens and draped usual sterile fashion. Timeout procedure was performed. IV antibiotics were given prior to incision. A standard anterior approach was utilized. Subcutaneous tissues was dissected with Bovie. Cephalic vein was identified and protected. Proximally the deltopectoral interval was opened. Distally the brachialis was split. The fracture was identified. There was an area of comminution. Soft tissue was removed from the fracture site. Fracture site was cleaned with curettes. At this point the fracture was reduced using fracture tenaculums. Multiplanar fluoroscopy confirmed excellent of fracture. 3.5 cortical lag screws were used to compress the fracture. A Synthes 3.5 plate was contoured to fit the humerus. Plate was provisionally held the bone with K wires. 3.5 cortical screws were placed on each side of the fracture. The screws were placed to add compression to fracture. Multiple screws were placed in each side of the fracture. All screws were predrilled and premeasured for appropriate length. Final fluoroscopy revealed excellent alignment of fracture with well-placed hardware. Incision was thoroughly irrigated. Fascia was closed with #1 Vicryl , subcutaneous tissues closed with 3-0 Vicryl, and skin was closed with matt. Sterile dressings were applied. Needle and sponge counts were correct. Patient was placed into a sling, and then transferred to recovery room in stable condition Documented By: David Feliciano MD 06/12/18 1020 Date of procedure: 06/16/18 Procedure: A time-out was completed verifying correct patient, procedure, site, positioning , and special equipment if applicable. The patient was placed in a dependent position appropriate for central line placement based on the vein to be cannulated. The patients right groin was prepped and draped in sterile fashion. 1% Lidocaine was used to anesthetize the surrounding skin area. A triple lumen 9-Malay Cordis catheter was introduced into the the common femoral vein using the Seldinger technique and under ultrasound guidance. The catheter was threaded smoothly over the guide wire and appropriate blood return was obtained. Each lumen of the catheter was evacuated of air and flushed with sterile saline. The catheter was then sutured in place to the skin and a sterile dressing applied. Perfusion to the extremity distal to the point of catheter insertion was checked and found to be adequate. Estimated Blood Loss: 1ml The patient tolerated the procedure well and there were no complications. Date of procedure: 06/16/18 Procedure: Arterial line placement A time-out was completed verifying correct patient, procedure, site, positioning , and special equipment if applicable. The patients right groin was prepped and draped in sterile fashion. 1% Lidocaine was used to anesthetize the area. A 18G Arrow arterial line was introduced into the femoral artery. The catheter was threaded over the guide wire and the needle was removed with appropriate pulsatile blood return. The catheter was then sutured in place to the skin and a sterile dressing applied. Perfusion to the extremity distal to the point of catheter insertion was checked and found to be adequate. Estimated Blood Loss: 1ml The patient tolerated the procedure well and there were no complications. Date of procedure: 06/16/18 Procedure: Endotracheal Intubation A time-out was completed verifying correct patient, procedure, site, positioning , and special equipment if applicable. The patient was placed in a flat position. The patient was easily ventilated using an ambu bag. The [employer]/ MAC 4 BLADE was used and inserted into the oropharynx at which time there was a Grade 1 view of the vocal cords. A 8-vietnamese endotracheal tube was inserted and visualized going through the vocal cords. The stylette was removed. Colorimetric change was visualized on the CO2 meter. Breath sounds were heard in both lung ramirez equally. The endotracheal tube was placed at 23 cm, measured at the teeth. A chest x-ray was ordered to assess for pneumothorax and verify endotrachealtube placement. Estimated Blood Loss: 0 The patient tolerated the procedure well and there were no complications. Completed studies during hospitalization: Laboratory Results WBC 19.7 th/mm3 (4.0-11.0) H D 06/16/18 04:38 RBC 3.11 mil/mm3 (4.00-5.30) L 06/16/18 04:38 Hgb 9.8 gm/dL (11.6-15.3) L D 06/16/18 04:38 Hct 31.0 % (35.0-46.0) L 06/16/18 04:38 MCV 99.7 fL (80.0-100.0) D 06/16/18 04:38 MCH 31.4 pg (27.0-34.0) 06/16/18 04:38 MCHC 31.5 % (32.0-36.0) L 06/16/18 04:38 RDW 13.7 % (11.6-17.2) 06/16/18 04:38 Plt Count 105 th/mm3 (150-450) L D 06/16/18 04:38 MPV 10.2 fL (7.0-11.0) 06/16/18 04:38 Prelim Diff (Auto) Slide review pending 06/16/18 04:38 Neut % (Auto) 31.2 % (16.0-70.0) 06/16/18 04:38 Lymph % (Auto) 60.9 % (9.0-44.0) H 06/16/18 04:38 [place] % (Auto) 5.9 % (0.0-8.0) 06/16/18 04:38 Eos % (Auto) 1.0 % (0.0-4.0) 06/16/18 04:38 Baso % (Auto) 1.0 % (0.0-2.0) 06/16/18 04:38 Neut # (Auto) 6.1 th/mm3 (1.8-7.7) 06/16/18 04:38 Lymph # (Auto) 12.0 th/mm3 (1.0-4.8) H 06/16/18 04:38 [place] # (Auto) 1.2 th/mm3 (0.0-0.9) H 06/16/18 04:38 Eos # (Auto) 0.2 th/mm3 (0.0-0.4) 06/16/18 04:38 Baso # (Auto) 0.2 th/mm3 (0.0-0.2) 06/16/18 04:38 WBC Differential Manual diff final 06/16/18 04:38 Seg Neuts % (Manual) 41 % (16-70) 06/16/18 04:38 Lymphocytes % (Manual) 51 % (9-44) H 06/16/18 04:38 Monocytes % (Manual) 4 % (0-8) 06/16/18 04:38 Eosinophils % (Manual) 4 % (0-4) 06/16/18 04:38 Abs Neuts (Manual) 8.1 th/mm3 (1.8-7.7) H 06/16/18 04:38 Nucleated RBCs/100 WBC 1 /100 WBC (0-0) H 06/16/18 04:38 Differential Comment . 06/16/18 04:38 Platelet Estimate Normal (Normal) 06/16/18 04:38 Platelet Morphology Normal (Normal) 06/16/18 04:38 Ovalocytes 1+ (None) H 06/16/18 04:38 PT 10.2 sec (9.8-11.6) 06/11/18 13:00 INR 1.0 Ratio 06/11/18 13:00 APTT 22.8 sec (24.3-30.1) L 06/11/18 13:00 D-Dimer Quant (PE/DVT) 26.94 mg/L FEU (0.00-0.50) H 06/16/18 04:38 Puncture Site Art line 06/16/18 04:39 Patient Temperature 98.6 06/16/18 04:39 O2 Saturation 78 % (90-100) L* 06/16/18 04:39 ABG pH 6.97 (7.380-7.420) L* 06/16/18 04:39 ABG pCO2 75 mmHg (38-42) H* 06/16/18 04:39 ABG pO2 73 mmHG (61-120) 06/16/18 04:39 ABG HCO3 16 mmol/L (22-26) L* 06/16/18 04:39 ABG O2 Content 11.4 Vol % (12.0-20.0) L 06/16/18 04:39 ABG Base Excess -13.6 mmol/L (-2-2) L 06/16/18 04:39 ABG Methemoglobin 1.5 % (0-2) 06/16/18 04:39 Hemoglobin 10.3 G/DL (12.0-16.0) L 06/16/18 04:39 Carboxyhemoglobin 0.0 % (0-4) 06/16/18 04:39 O2 Delivery Device Ambu 06/16/18 04:39 Liter Flow 15.00 L/M 06/16/18 04:39 Inspired O2 100 % 06/16/18 04:39 Critical Value Yes 06/16/18 04:39 Sodium 148 meq/L (136-145) H 06/16/18 04:38 Potassium 2.9 meq/L (3.5-5.1) L* 06/16/18 04:38 Chloride 99 meq/L (98-107) 06/16/18 04:38 Carbon Dioxide 24.8 meq/L (21.0-32.0) 06/16/18 04:38 Anion Gap 24 meq/L (5-15) H 06/16/18 04:38 BUN 18 mg/dL (7-18) 06/16/18 04:38 Creatinine 1.37 mg/dL (0.50-1.00) H 06/16/18 04:38 Estimated GFR 38 mL/min (>89) L 06/16/18 04:38 POC Glucose 248 mg/dl (68-110) H 06/16/18 03:11 Random Glucose 579 mg/dL (74-106) H* D 06/16/18 04:38 Hemoglobin A1c 8.1 % (4.3-6.0) H 06/15/18 06:40 Calcium 9.9 mg/dL (8.5-10.1) D 06/16/18 04:38 Phosphorus 8.6 mg/dL (2.5-4.9) H D 06/16/18 04:38 Magnesium 2.8 mg/dL (1.5-2.5) H D 06/16/18 04:38 Total Bilirubin 0.2 mg/dL (0.2-1.0) 06/16/18 04:38 AST 811 U/L (15-37) H 06/16/18 04:38 ALT 606 U/L (10-53) H 06/16/18 04:38 Alkaline Phosphatase 101 U/L (45-117) 06/16/18 04:38 Troponin I 0.25 ng/mL (0.02-0.05) H 06/16/18 04:38 Total Protein 4.6 g/dL (6.4-8.2) L D 06/16/18 04:38 Albumin 1.7 g/dL (3.4-5.0) L D 06/16/18 04:38 TSH 2.520 uIU/mL (0.358-3.740) 06/15/18 06:40 Free T4 1.37 ng/dL (0.76-1.46) 06/15/18 06:40 Urine Color Yellow (Yellw/Straw) 06/12/18 05:25 Urine Clarity Hazy (Clear) H 06/12/18 05:25 Urine pH 6.0 (5.0-8.5) 06/12/18 05:25 Ur Specific [place] 1.024 (1.002-1.035) 06/12/18 05:25 Urine Protein Negative mg/dL (Neg-Trace) 06/12/18 05:25 Urine Glucose (UA) 500 or greater mg/dL (Negative) 06/12/18 05:25 Urine Ketones Negative mg/dL (Negative) 06/12/18 05:25 Urine Occult Blood Negative (Negative) 06/12/18 05:25 Urine Nitrate Negative (Negative) 06/12/18 05:25 Urine Bilirubin Negative (Negative) 06/12/18 05:25 Urine Urobilinogen Less than 2 mg/dL (Less than 2) 06/12/18 05:25 Ur Leukocyte Esterase Negative (Negative) 06/12/18 05:25 Urine RBC 2 /hpf (0-3) 06/12/18 05:25 Urine WBC 8 /hpf (0-5) H 06/12/18 05:25 Ur Squamous Epith Cells 2 /hpf (0-5) 06/12/18 05:25 Urine Mucus Few /lpf (Occasional) H 06/12/18 05:25 Micro UA Comment Culture not ind 06/12/18 05:25 Ur Microscopic Review Not Reportable 06/12/18 05:25 Urine Culture Comments Culture not ind 06/12/18 05:25 Blood Type A Positive 06/11/18 13:00 Blood Type Recheck Required 06/11/18 13:00 Antibody Screen Negative 06/11/18 13:[address] 06/11/18 12:51 CONCLUSION: 1. No acute fracture or prevertebral soft tissue swelling. 2. Moderate spinal stenosis and bilateral foraminal narrowing at C5-6. 3. Mild spinal stenosis and moderate left neuroforaminal narrowing at C4-C5. 4. Severe left neuroforaminal narrowing and moderate right neuroforaminal narrowing without spinal stenosis at C3-4. 5. Grade I anterolisthesis of C7 in relation to T1. 6. Moderate left neuroforaminal narrowing at C2-3 and C6-7. 7. Straightening of the normal cervical lordosis. Face CT 06/11/18 12:51 CONCLUSION: 1. Left frontal subcutaneous hematoma. No evidence of underlying facial fracture or significant sinus disease Head CT 06/11/18 12:51 CONCLUSION: 1. Negative CT Head non contrast. Mild atrophy . Pelvis X-Ray 06/11/18 12:51 CONCLUSION: Negative examination. Chest CT 06/11/18 12:53 CONCLUSION: 1. Negative CT Chest non contrast. Shoulder X-Ray 06/11/18 12:53 CONCLUSION: Oblique displaced humeral shaft fracture as described above. Wrist X-Ray 06/11/18 14:47 CONCLUSION: 1. 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 2. No acute fracture, dislocation or soft tissue swelling. Humerus X-Ray 06/12/18 00:00 CONCLUSION: Anatomic alignment. Chest X-Ray 06/16/18 00:00 CONCLUSION: 1. Endotracheal tube in place with tip at the octavia. 2. Mild patchy left lung base pulmonary parenchymal opacity. Labs on day of discharge: Labs from last 24 hours 06/16/18 06/16/18 06/16/18 04:39 04:38 04:38 WBC 19.7 H D RBC 3.11 L Hgb 9.8 L D Hct 31.0 L MCV 99.7 D MCH 31.4 MCHC 31.5 L RDW 13.7 Plt Count 105 L D MPV 10.2 Prelim Diff (Auto) Slide review pending Neut % (Auto) 31.2 Lymph % (Auto) 60.9 H Linn % (Auto) 5.9 Eos % (Auto) 1.0 Baso % (Auto) 1.0 Neut # (Auto) 6.1 Lymph # (Auto) 12.0 H Linn # (Auto) 1.2 H Eos # (Auto) 0.2 Baso # (Auto) 0.2 WBC Differential Manual diff final Seg Neuts % (Manual) 41 Lymphocytes % (Manual) 51 H Monocytes % (Manual) 4 Eosinophils % (Manual) 4 Abs Neuts (Manual) 8.1 H Nucleated RBCs/100 WBC 1 H Differential Comment . Platelet Estimate Normal Platelet Morphology Normal Ovalocytes 1+ H D-Dimer Quant (PE/DVT) Puncture Site Art line Patient Temperature 98.6 O2 Saturation 78 L* ABG pH 6.97 L* ABG pCO2 75 H* ABG pO2 73 ABG HCO3 16 L* ABG O2 Content 11.4 L ABG Base Excess -13.6 L ABG Methemoglobin 1.5 Hemoglobin 10.3 L Carboxyhemoglobin 0.0 O2 Delivery Device Ambu Liter Flow 15.00 Inspired O2 100 Critical Value Yes Sodium 148 H Potassium 2.9 L* Chloride 99 Carbon Dioxide 24.8 Anion Gap 24 H BUN 18 Creatinine 1.37 H Estimated GFR 38 L POC Glucose Random Glucose 579 H* D Hemoglobin A1c Calcium 9.9 D Phosphorus 8.6 H D Magnesium 2.8 H D Total Bilirubin 0.2 AST 811 H ALT 606 H Alkaline Phosphatase 101 Troponin I 0.25 H Total Protein 4.6 L D Albumin 1.7 L D 06/16/18 06/16/18 06/15/18 04:38 03:11 21:32 WBC RBC Hgb Hct MCV MCH MCHC RDW Plt Count MPV Prelim Diff (Auto) Neut % (Auto) Lymph % (Auto) Linn % (Auto) Eos % (Auto) Baso % (Auto) Neut # (Auto) Lymph # (Auto) Linn # (Auto) Eos # (Auto) Baso # (Auto) WBC Differential Seg Neuts % (Manual) Lymphocytes % (Manual) Monocytes % (Manual) Eosinophils % (Manual) Abs Neuts (Manual) Nucleated RBCs/100 WBC Differential Comment Platelet Estimate Platelet Morphology Ovalocytes D-Dimer Quant (PE/DVT) 26.94 H Puncture Site Patient Temperature O2 Saturation ABG pH ABG pCO2 ABG pO2 ABG HCO3 ABG O2 Content ABG Base Excess ABG Methemoglobin Hemoglobin Carboxyhemoglobin O2 Delivery Device Liter Flow Inspired O2 Critical Value Sodium Potassium Chloride Carbon Dioxide Anion Gap BUN Creatinine Estimated GFR POC Glucose 248 H 238 H Random Glucose Hemoglobin A1c Calcium Phosphorus Magnesium Total Bilirubin AST ALT Alkaline Phosphatase Troponin I Total Protein Albumin 06/15/18 06/15/18 06/15/18 19:33 17:27 12:43 WBC RBC Hgb Hct MCV MCH MCHC RDW Plt Count MPV Prelim Diff (Auto) Neut % (Auto) Lymph % (Auto) [place] % (Auto) Eos % (Auto) Baso % (Auto) Neut # (Auto) Lymph # (Auto) Linn # (Auto) Eos # (Auto) Baso # (Auto) WBC Differential Seg Neuts % (Manual) Lymphocytes % (Manual) Monocytes % (Manual) Eosinophils % (Manual) Abs Neuts (Manual) Nucleated RBCs/100 WBC Differential Comment Platelet Estimate Platelet Morphology Ovalocytes D-Dimer Quant (PE/DVT) Puncture Site Patient Temperature O2 Saturation ABG pH ABG pCO2 ABG pO2 ABG HCO3 ABG O2 Content ABG Base Excess ABG Methemoglobin Hemoglobin Carboxyhemoglobin O2 Delivery Device Liter Flow Inspired O2 Critical Value Sodium Potassium Chloride Carbon Dioxide Anion Gap BUN Creatinine Estimated GFR POC Glucose 216 H 256 H 286 H Random Glucose Hemoglobin A1c Calcium Phosphorus Magnesium Total Bilirubin AST ALT Alkaline Phosphatase Troponin I Total Protein Albumin 06/15/18 06:40 WBC RBC Hgb Hct MCV MCH MCHC RDW Plt Count MPV Prelim Diff (Auto) Neut % (Auto) Lymph % (Auto) [place] % (Auto) Eos % (Auto) Baso % (Auto) Neut # (Auto) Lymph # (Auto) Linn # (Auto) Eos # (Auto) Baso # (Auto) WBC Differential Seg Neuts % (Manual) Lymphocytes % (Manual) Monocytes % (Manual) Eosinophils % (Manual) Abs Neuts (Manual) Nucleated RBCs/100 WBC Differential Comment Platelet Estimate Platelet Morphology Ovalocytes D-Dimer Quant (PE/DVT) Puncture Site Patient Temperature O2 Saturation ABG pH ABG pCO2 ABG pO2 ABG HCO3 ABG O2 Content ABG Base Excess ABG Methemoglobin Hemoglobin Carboxyhemoglobin O2 Delivery Device Liter Flow Inspired O2 Critical Value Sodium Potassium Chloride Carbon Dioxide Anion Gap BUN Creatinine Estimated GFR POC Glucose Random Glucose Hemoglobin A1c 8.1 H Calcium Phosphorus Magnesium Total Bilirubin AST ALT Alkaline Phosphatase Troponin I Total Protein Albumin - Impressions ITS Impressions Cervical Spine CT 06/11/18 12:51 CONCLUSION: 1. No acute fracture or prevertebral soft tissue swelling. 2. Moderate spinal stenosis and bilateral foraminal narrowing at C5-6. 3. Mild spinal stenosis and moderate left neuroforaminal narrowing at C4-C5. 4. Severe left neuroforaminal narrowing and moderate right neuroforaminal narrowing without spinal stenosis at C3-4. 5. Grade I anterolisthesis of C7 in relation to T1. 6. Moderate left neuroforaminal narrowing at C2-3 and C6-7. 7. Straightening of the normal cervical lordosis. Face CT 06/11/18 12:51 CONCLUSION: 1. Left frontal subcutaneous hematoma. No evidence of underlying facial fracture or significant sinus disease Head CT 06/11/18 12:51 CONCLUSION: 1. Negative CT Head non contrast. Mild atrophy . Pelvis X-Ray 06/11/18 12:51 CONCLUSION: Negative examination. Chest CT 06/11/18 12:53 CONCLUSION: 1. Negative CT Chest non contrast. Shoulder X-Ray 06/11/18 12:53 CONCLUSION: Oblique displaced humeral shaft fracture as described above. Wrist X-Ray 06/11/18 14:47 CONCLUSION: 1. 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 2. No acute fracture, dislocation or soft tissue swelling. Humerus X-Ray 06/12/18 00:00 CONCLUSION: Anatomic alignment. Chest X-Ray 06/16/18 00:00 CONCLUSION: 1. Endotracheal tube in place with tip at the [place]. 2. Mild patchy left lung base pulmonary parenchymal opacity. Discharge Plan - Discharge Disposition Patient Disposition: 20 - Discharge Order Discharge Orders: Discharge Order (Routine); Ordered 06/15/18 Ordered By: Gerardo Matthews Orthopedic Clear for Discharge (Routine); Ordered 06/15/18 Ordered By: Cristi Lewis - Discharge Details Anticipated Discharge Date: 06/15/18 Discharge Comment: orthopedics clear for discharge Date/Time: 06/16/18 05:01 - Physicians Team Primary Care Provider: MARIA VICTORIA Luevano Attending Provider: Gerardo Matthews Other Providers: Jesse Cooper MD ; David Feliciano MD ; [facility] ; [facility]
--- NOTE | 2018-06-16 17:46 | ECG ---
Date Performed: 06/16/2018 Time Performed: 03:26:39 PTAGE: 73 years EKG: ATRIAL FIBRILLATION WITH RAPID VENTRICULAR RESPONSE RIGHT BUNDLE BRANCH BLOCK ST DEVIATION AND MODERATE T-WAVE ABNORMALITY CONSIDER INFERIOR AR, AGE INDETERMINATE ABNORMAL ECG PREVIOUS TRACING : 06/11/2018 14.42 DOCTOR: Johnson Cheema Interpretating Date/Time 06/16/2018 18:04:23
== END 2018-06-16 05:01 | disposition expired ==
LOC: NEPD 12:30 → NEDA 15:37 → N06 16:40 → HCPC 06-16 04:00 → HIMC 06-16 04:20
PROVIDERS: ADMIT Hospitalist; ATTEND Hospitalist